=== PATIENT | female | born 1990 | race Caucasian/White ===

== ENCOUNTER 2016-05-02 14:33 | Emergency (ER) | payer OTHER ==
[~2016-05-02 14:33] MED LIST: PREN27TA3 PO
[2016-05-02 15:52] LABS: BASO % 0.2 % (0.0-1.0); EOS # 0.1 K/mm3 (0.0-0.50); EOS % 1.1 % (0.0-3.0); LARGE UNSTAINED CELL # 0.3 K/mm3 (0.0-0.4); LYMPH # 1.8 K/mm3 (1.5-6.5); LYMPH % 14.6 % (24.0-44.0); MEAN CORPUSCULAR HEMOGLOBIN 29.8 pg (27.0-33.0); MEAN CORPUSCULAR HGB CONC 33.7 g/dl (32.0-36.5); MEAN CORPUSCULAR VOLUME 88.6 fl (80.0-96.0); MONO # 0.8 K/mm3 (0.0-0.8); MONO % 6.1 % (0.0-5.0); NEUTROPHILS # 9.6 K/mm3 (1.8-7.7); PLATELET COUNT, AUTOMATED 304 k/mm3 (150-450); RED CELL DISTRIBUTION WIDTH 13.1 % (11.5-14.5); WHITE BLOOD COUNT 12.6 K/mm3 (4.0-10.0)
[2016-05-02 15:58] LABS: INR 0.95
[2016-05-02 16:21] LABS: ANION GAP 9 MEQ/L (8-16); BLOOD UREA NITROGEN 4 MG/DL (7-18); CALCIUM LEVEL 8.7 MG/DL (8.5-10.1); CARBON DIOXIDE LEVEL 24 MEQ/L (21-32); CHLORIDE LEVEL 108 MEQ/L (98-107); CREATININE FOR GFR 0.48 MG/DL (0.55-1.02); GLOMERULAR FILTRATION RATE > 60.0 (>60); GLUCOSE, FASTING 76 MG/DL (70-105); SODIUM LEVEL 141 MEQ/L (136-145)
--- NOTE | 2016-05-02 16:47 | REP ---
Bilateral lower extremity Duplex Doppler venous ultrasound: Real time compression and duplex Doppler interrogation of the bilateral lower extremity deep venous system is performed. Bilaterally, the common femoral, superficial femoral and popliteal veins are fully compressible with transducer pressure and demonstrate normal spontaneous and phasic flow, without evidence of deep venous thrombosis. Impression: No evidence of deep venous thrombosis of the bilateral lower extremity femoral popliteal venous system. Signed by Rudy Patel MD 05/02/2016 04:38 P
--- NOTE | 2016-05-02 17:24 | EDDOCDS ---
[facility] Name: Adamaris Gore Age: 25 yrs Sex: Female : 1990 Arrival Date: 05/02/2016 Time: 14:33 Bed I2 / M2 Private MD: Reena Hope C Diagnosis: Chest pain, unspecified Presentation: 05/02 14:41 Presenting complaint: Patient states: pain under left breast that radiates to back that dsf started this morning. pt states she did have calf pain 2 days ago but that has resolved this morning. pt states she is 35 weeks . Aspirin was not taken prior to arrival. Adult Sepsis Screening: The patient does not have new or worsening altered mentation. Patient's respiratory rate is less than 22. Systolic blood pressure is greater than 100. Patient has a qSOFA score of 0- Negative Sepsis Screen. Suicide/Homicide risk assessment- the patient denies having any suicidal and/or homicidal ideations and does not present with any other emotional, behavioral or mental health complaints. 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 Transition of care: patient was not received from another setting of care. 14:41 Acuity: PALOMA Level 3 dsf 14:41 Method Of Arrival: Walkin/Carried/Asstd dsf Triage Assessment: 14:43 General: Appears in no apparent distress, Behavior is appropriate for age, cooperative. dsf Pain: Location: under left breast Pain currently is 6 out of 10 on a pain scale. Pain radiates to back Quality of pain is described as sharp. HIV screening NA for this visit Offered previously. Cardiovascular: Chest pain is described as Pain is 6 out of 10 on a pain scale. quality is sharp is located in under left breast radiates back episodes are continuous began this morning. Respiratory: Reports pain with respiration. Derm: Skin is pink, warm & dry. 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 1 mg Oral tab daily (Last dose: 05/01/2016) 2. vitamin B12 IM injection monthly (Last dose: Unknown) - PMHx: Depression; GERD; Glaucoma; Vitamin D deficiency; - PSHx: ; - Social history: Smoking status: Patient uses tobacco products, current every day smoker. No barriers to communication noted, The patient speaks fluent Bangladeshi, Speaks appropriately for age. - Family history: Not pertinent. - : The pt / caregiver states he / she is not on anticoagulants. Home medication list is obtained from the patient. - Exposure Risk Screening:: None identified. Screenin:10 Screening information is obtained from the patient. Fall risk: No risks identified. kr3 Assistance ADL's: requires no assistance with activities of daily living. Abuse/DV Screen: The patient / caregiver reports he/she is: not in a situation that causes fear, pain or injury. Nutritional screening: No deficits noted. Advance Directives: Currently, there is no health care proxy. home support is adequate. Assessment: 15:42 General: Appears in no apparent distress, comfortable, well developed, well nourished, ka4 well groomed, Behavior is appropriate for age, cooperative, pleasant. Pain: Location: epigastric area, right upper quadrant and left upper quadrant Pain currently is 4 out of 10 on a pain scale. Neurological: Level of Consciousness is awake, alert, obeys commands, Oriented to person, place, time, Gait is steady, Speech is normal, Facial symmetry appears normal, Facial symmetry: tongue is midline. Respiratory: Airway is patent Respiratory effort is even, unlabored, Respiratory pattern is regular, symmetrical. Derm: Skin is intact, is healthy with good turgor, Skin is pink, warm & dry. 16:15 General: Appears in no apparent distress. Cardiovascular: Rhythm is not applicable rs3 Chest pain is denied. Respiratory: Reports pain with respiration Left flank pain. Musculoskeletal: Circulation, motion, and sensation intact Capillary refill < 3 seconds. 17:23 Reassessment: Patient appears in no apparent distress at this time. Patient states rs3 feeling better. Patient states symptoms have improved. Vital Signs: 14:35 BP 116 / 81; Pulse 124; Resp 18 S; Temp 97.5(O); Pulse Ox 98% on R/A; Weight 82.55 kg gr2 (R); Height 5 ft. 8 in. (172.72 cm) (R); Pain 6/10; 16:52 BP 123 / 68; Pulse 89; Resp 18; Temp 98(O); Pulse Ox 100% on R/A; Pain 6/10; rs3 14:35 Body Mass Index 27.67 (82.55 kg, 172.72 cm) gr2 Vitals: 14:35 Log In Time: May 02, 2016 at 14:35. gr2 15:10 Heart Tones 158BPM. kr3 ED Course: 14:34 Patient visited by Kendra Patel. gr2 14:34 Patient moved to Waiting gr2 14:35 Reena Hope is Private Physician. gr2 14:37 Patient visited by Kendra Patel. gr2 14:37 Patient moved to Pre RCE gr2 14:42 Triage Initiated dsf 14:47 Patient moved to Triage 1 dsf 15:08 Luis Hicks PA-C is PHCP. cc10 15:09 Jennifer Gaytan MD is Attending Physician. cc10 15:09 Patient visited by Luis Hicks PA-C. cc10 15:09 Patient visited by Luis Hicks PA-C. cc10 15:10 EKG done. (by ED staff). Reviewed by Cornelius DEL RIO. kr3 15:18 Patient moved to I2 / M2 kr3 15:41 Basic Metabolic Profile Sent. ka4 15:41 CBC with Diff Sent. ka4 15:41 Cardiac Injury Profile Sent. ka4 15:41 Partial Thromboplastin Time Sent. ka4 15:41 Prothrombin Time Profile\E\INR Sent. ka4 15:41 Troponin Sent. ka4 15:42 Inserted saline lock: 20 gauge in right antecubital area and blood collected. The ka4 patient tolerated the procedure well. No procedures done that require assistance. Labs drawn. (by ED staff). Sent per order to lab. 15:44 Patient visited by Tonya Roper LPN. ka4 16:15 Patient moved to Ultrasound am17 16:31 Patient moved to I2 / M2 am17 16:52 Patient visited by Mayda Perez RN. rs3 17:10 Anaid Velasco MD is Referral Physician. cc10 17:18 Lower Extremities Bilateral R/O DVT Returned. EDMS 17:20 [facility] Payment Agreement was scanned into [email or web address] and attached to record. zo 17:24 The patient / caregiver is instructed regarding the plan of care and ED course. Cardiac rs3 monitoring not applicable on this patient. Administered Medications: 15:49 Drug: NS 0.9% 500 ml [sodium chloride 0.9 % intravenous solution] Route: IV; Rate: rs3 bolus; Site: right antecubital; Order Results: Lab Order: Basic Metabolic Profile; SPEC'M 05/02/16 15:39 Test: GLUCOSE, FASTING; Value: 76; Range: 70-105; Units: MG/DL; Status: F Test: BLOOD UREA NITROGEN; Value: 4; Range: 7-18; Abnormal: Below low normal; Units: MG/DL; Status: F Test: CREATININE FOR GFR; Value: 0.48; Range: 0.55-1.02; Abnormal: Below low normal; Units: MG/DL; Status: F Test: GLOMERULAR FILTRATION RATE; Value: > 60.0; Range: >60; Status: F Test: SODIUM LEVEL; Value: 141; Range: 136-145; Units: MEQ/L; Status: F Test: POTASSIUM SERUM; Value: 4.0; Range: 3.5-5.1; Units: MEQ/L; Status: F Test: CHLORIDE LEVEL; Value: 108; Range: 98-107; Abnormal: Above high normal; Units: MEQ/L; Status: F Test: CARBON DIOXIDE LEVEL; Value: 24; Range: 21-32; Units: MEQ/L; Status: F Test: ANION GAP; Value: 9; Range: 8-16; Units: MEQ/L; Status: F Test: CALCIUM LEVEL; Value: 8.7; Range: 8.5-10.1; Units: MG/DL; Status: F Test Note: ; Units are mL/min/1.73 m2 Chronic Kidney Disease Staging per NKF: Stage I & II GFR >=60 Normal to Mildly Decreased Stage III GFR 30-59 Moderately Decreased Stage IV GFR 15-29 Severely Decreased Stage V GFR <15 Very Little GFR Left ESRD GFR <15 on DIRECTOR ELECTRICAL ENGINEERING Lab Order: CBC with Diff; SPEC'M 05/02/16 15:39 Test: WHITE BLOOD COUNT; Value: 12.6; Range: 4.0-10.0; Abnormal: Above high normal; Units: K/mm3; Status: F Test: RED BLOOD COUNT; Value: 3.69; Range: 4.00-5.40; Abnormal: Below low normal; Units: M/mm3; Status: F Test: HEMOGLOBIN; Value: 11.0; Range: 12.0-16.0; Abnormal: Below low normal; Units: g/dl; Status: F Test: HEMATOCRIT; Value: 32.7; Range: 36.0-47.0; Abnormal: Below low normal; Units: %; Status: F Test: MEAN CORPUSCULAR VOLUME; Value: 88.6; Range: 80.0-96.0; Units: fl; Status: F Test: MEAN CORPUSCULAR HEMOGLOBIN; Value: 29.8; Range: 27.0-33.0; Units: pg; Status: F Test: MEAN CORPUSCULAR HGB CONC; Value: 33.7; Range: 32.0-36.5; Units: g/dl; Status: F Test: RED CELL DISTRIBUTION WIDTH; Value: 13.1; Range: 11.5-14.5; Units: %; Status: F Test: PLATELET COUNT, AUTOMATED; Value: 304; Range: 150-450; Units: k/mm3; Status: F Test: NEUTROPHILS %; Value: 76.0; Range: 36.0-66.0; Abnormal: Above high normal; Units: %; Status: F Test: LYMPH %; Value: 14.6; Range: 24.0-44.0; Abnormal: Below low normal; Units: %; Status: F Test: MONO %; Value: 6.1; Range: 0.0-5.0; Abnormal: Above high normal; Units: %; Status: F Test: EOS %; Value: 1.1; Range: 0.0-3.0; Units: %; Status: F Test: BASO %; Value: 0.2; Range: 0.0-1.0; Units: %; Status: F Test: LARGE UNSTAINED CELL %; Value: 2.0; Range: 0.0-4.0; Units: %; Status: F Test: NEUTROPHILS #; Value: 9.6; Range: 1.8-7.7; Abnormal: Above high normal; Units: K/mm3; Status: F Test: LYMPH #; Value: 1.8; Range: 1.5-6.5; Units: K/mm3; Status: F Test: MONO #; Value: 0.8; Range: 0.0-0.8; Units: K/mm3; Status: F Test: EOS #; Value: 0.1; Range: 0.0-0.50; Units: K/mm3; Status: F Test: BASO #; Value: 0.0; Range: 0.0-0.2; Units: K/mm3; Status: F Test: LARGE UNSTAINED CELL #; Value: 0.3; Range: 0.0-0.4; Units: K/mm3; Status: F Lab Order: Cardiac Injury Profile; [facility] 05/02/16 15:39 Test: CPK CREATINE PHOSPHOKINASE; Value: 26; Range: 26-192; Units: U/L; Status: F Test: CK-MB VALUE MASS; Value: 1.0; Range: 0.0-3.6; Units: NG/ML; Status: F Test: MB/CK RELATIVE INDEX; Value: 3.84; Range: < OR =4; Status: F Test Note: ; DIAGNOSIS CRITERIA MMB ng/ml Relative Index (RI) NON-AMI < or = 5 N/A PATEL ZONE > 5 < or = 4 AMI > 5 > 4 Lab Order: Partial Thromboplastin Time; [facility] 05/02/16 15:38 Test: PARTIAL THROMBOPLASTIN TIME; Value: 24.3; Range: 26.6-37.1; Abnormal: Below low normal; Units: SECONDS; Status: F Lab Order: Prothrombin Time Profile\E\INR; [facility] 05/02/16 15:38 Test: PROTHROMBIN TIME; Value: 12.8; Range: 12.3-14.5; Units: SECONDS; Status: F Test: INR; Value: 0.95; Status: F Test Note: ; THERAPUTIC HUMAN INR VALUES INDICATIONS NORMAL RANGES PROPHYLAXIS/TREATMENT OF: VENOUS THROMBOSIS 2.0-3.0 PULMONARY EMBOLISM 2.0-3.0 PREVENTION OF SYSTEMIC EMBOLISM FROM: TISSUE HEART VALVES 2.0-3.0 ACUTE MYOCARDIAL INFARCTION 2.0-3.0 VALVULAR HEART DISEASE 2.0-3.0 ATRIAL FIBRILLATION 2.0-3.0 MECHANICAL VALVES(HIGH RISK) 2.5-3.5 RECURRENT MYOCARDIAL INFARCTION 2.5-3.5 Lab Order: Troponin; [facility] 05/02/16 15:39 Test: TROPONIN I; Value: < 0.02; Range: < 0.10; Units: NG/ML; Status: F Test Note: ; Troponin I Reference Interval for [employer] [place] LOCI: 99th Percentile= 0.00-0.045 ng/ml Risk Stratification: <= 0.10 ng/ml Decreased Risk for Adverse Clinical Events. 0.10-1.50 ng/ml Increased Risk for Adverse Clinical Events. Evaluation of additional criterion and/or repeat testing in 2-6 hours is suggested to rule out myocardial damage. >= 1.50 ng/ml Indicative of Myocardial Injury. Radiology Order: US Lower Extremities Bilateral R/O DVT Test: US Lower Extremities Bilateral R/O DVT REASON FOR EXAMINATION: Deformity/Swelling; Bilateral lower extremity Duplex Doppler venous ultrasound:; ; Real time compression and duplex Doppler interrogation of the bilateral lower; extremity deep venous system is performed. Bilaterally, the common femoral,; superficial femoral and popliteal veins are fully compressible with transducer; pressure and demonstrate normal spontaneous and phasic flow, without evidence of; deep venous thrombosis.; ; Impression:; ; No evidence of deep venous thrombosis of the bilateral lower extremity femoral; popliteal venous system.; ; ; Signed by; Rudy Patel MD 05/02/2016 04:38 P; Outcome: 17:10 Discharge ordered by Provider. cc10 17:23 Discharge Assessment: patient administered narcotics - no. The following High Risk rs3 Discharge criteria are identified: None. Discharged to home with family. Condition: stable. Discharge instructions given to patient, Instructed on discharge instructions, follow up and referral plans. medication usage, Demonstrated understanding of instructions, medications, Pt was receptive of discharge instructions/ teaching. No special radiology studies were completed. Property :Personal belongings accompany Pt. 17:24 Patient left the ED. rs3 Signatures: Dispatcher [employer] EDMS Nara Galeana RN RN kr3 Renay Velásquez Rosemary, RN RN rs3 Dawna Myers RN RN javierf Kendra Patel2 Ekta Landis am17 Luis Hicks, PA-C PA-C cc10 Tonya Roper LPN [employer]PER[employer] ka4 Corrections: (The following items were deleted from the chart) 14:45 14:41 Presenting complaint: Patient states: pain under left breast that radiates to dsf back that started this morning. pt states she did have calf pain 2 days ago but that has resolved this morning dsf MTDD
--- NOTE | 2016-05-02 17:24 | EDDOCDS ---
Physician Documentation [facility] Name: Adamaris Gore Age: 25 yrs Sex: Female : 1990 Arrival Date: 05/02/2016 Time: 14:33 Bed I2 / M2 Private MD: Reena Hope C Disposition: 05/02/16 17:10 Discharged to Home/Self Care. Impression: Chest pain, unspecified. - Condition is Stable. - Discharge Instructions: Chest Wall Pain. - Medication Reconciliation form. - Follow up: Emergency Department; When: As needed; Reason: Worsening of conditions. Follow up: Anaid Velasco MD; When: Call to arrange an appointment; Reason: Wound/Symptom Recheck, Recheck today's complaints, Worsening of conditions, Continuance of care. - Problem is new. - Symptoms are unchanged. Historical: - Allergies: no known allergies; - Home Meds: 1. 1 mg Oral tab daily (Last dose: 05/01/2016) 2. vitamin B12 IM injection monthly (Last dose: Unknown) - PMHx: Depression; GERD; Glaucoma; Vitamin D deficiency; - PSHx: ; - Social history: Smoking status: Patient uses tobacco products, current every day smoker. No barriers to communication noted, The patient speaks fluent Bhutanese, Speaks appropriately for age. - Family history: Not pertinent. - : The pt / caregiver states he / she is not on anticoagulants. Home medication list is obtained from the patient. - Exposure Risk Screening:: None identified. FIELD HAND: 05/02 14:45 LMP 08/27/2015, Verified, EDC 06/02/2016, Gestational age from LMP: 35 weeks 4 dsf days Vital Signs: 14:35 BP 116 / 81; Pulse 124; Resp 18 S; Temp 97.5(O); Pulse Ox 98% on R/A; Weight 82.55 kg / gr2 181.99 lbs (R); Height 5 ft. 8 in. (172.72 cm) (R); Pain 6/10; 16:52 BP 123 / 68; Pulse 89; Resp 18; Temp 98(O); Pulse Ox 100% on R/A; Pain 6/10; rs3 14:35 Body Mass Index 27.67 (82.55 kg, 172.72 cm) gr2 MDM: 14:52 ECG WITH READING ER PHYS+CARDIAG ordered. EDMS 15:17 NS 0.9% 500 ml IV at bolus once ordered. cc10 15:17 IV Saline Lock ordered. cc10 15:17 Undress patient appropriately for examination ordered. cc10 15:17 Heart Tones ordered. cc10 15:19 US Lower Extremities Bilateral R/O DVT Ordered. EDMS 15:19 Basic Metabolic Profile Ordered. EDMS 15:19 CBC with Diff Ordered. EDMS 15:19 Cardiac Injury Profile Ordered. EDMS 15:19 Partial Thromboplastin Time Ordered. EDMS 15:19 Prothrombin Time Profile\E\INR Ordered. EDMS 15:19 Troponin Ordered. EDMS 16:26 Basic Metabolic Profile Reviewed. cc10 16:26 CBC with Diff Reviewed. cc10 16:26 Partial Thromboplastin Time Reviewed. cc10 16:26 Cardiac Injury Profile Reviewed. cc10 16:26 Prothrombin Time Profile\E\INR Reviewed. cc10 16:26 Troponin Reviewed. cc10 16:45 Vital Signs ordered. cc10 17:02 Financial registration complete. zo 17:20 [facility] Payment Agreement was scanned into [employer] and attached to record. zo Administered Medications: 15:49 Drug: NS 0.9% 500 ml [sodium chloride 0.9 % intravenous solution] Route: IV; Rate: rs3 bolus; Site: right antecubital; Signatures: Dispatcher [employer] Renay Kemp Rosemary, RN RN rs3 Dawna Myers RN RN dsf Luis Hicks PA-C PAToni cc10 The chart was reviewed and I authenticate all verbal orders and agree with the evaluation and treatment provided.Attachments: 17:20 [facility] Payment Agreement zo MTDD
--- NOTE | 2016-05-04 08:14 | ECGEPIP ---
Stationary ECG Study 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
--- NOTE | 2016-05-04 18:25 | EDDOCDS ---
Physician Documentation [facility] Name: Adamaris Gore Age: 25 yrs Sex: Female : 1990 Arrival Date: 05/02/2016 Time: 14:33 Bed I2 / M2 Private MD: Reena Hope C Disposition: 05/02/16 17:10 Discharged to Home/Self Care. Impression: Chest pain, unspecified. - Condition is Stable. - Discharge Instructions: Chest Wall Pain. - Medication Reconciliation form. - Follow up: Emergency Department; When: As needed; Reason: Worsening of conditions. Follow up: Anaid Velasco MD; When: Call to arrange an appointment; Reason: Wound/Symptom Recheck, Recheck today's complaints, Worsening of conditions, Continuance of care. - Problem is new. - Symptoms are unchanged. Historical: - Allergies: no known allergies; - Home Meds: 1. 1 mg Oral tab daily (Last dose: 05/01/2016) 2. vitamin B12 IM injection monthly (Last dose: Unknown) - PMHx: Depression; GERD; Glaucoma; Vitamin D deficiency; - PSHx: ; - Social history: Smoking status: Patient uses tobacco products, current every day smoker. No barriers to communication noted, The patient speaks fluent Guamanian, Speaks appropriately for age. - Family history: Not pertinent. - : The pt / caregiver states he / she is not on anticoagulants. Home medication list is obtained from the patient. - Exposure Risk Screening:: None identified. 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 8 in. (172.72 cm) (R); Pain 6/10; 16:52 BP 123 / 68; Pulse 89; Resp 18; Temp 98(O); Pulse Ox 100% on R/A; Pain 6/10; rs3 14:35 Body Mass Index 27.67 (82.55 kg, 172.72 cm) gr2 MDM: 14:52 ECG WITH READING ER PHYS+CARDIAG ordered. EDMS 15:17 NS 0.9% 500 ml IV at bolus once ordered. cc10 15:17 IV Saline Lock ordered. cc10 15:17 Undress patient appropriately for examination ordered. cc10 15:17 Heart Tones ordered. cc10 15:19 US Lower Extremities Bilateral R/O DVT Ordered. EDMS 15:19 Basic Metabolic Profile Ordered. EDMS 15:19 CBC with Diff Ordered. EDMS 15:19 Cardiac Injury Profile Ordered. EDMS 15:19 Partial Thromboplastin Time Ordered. EDMS 15:19 Prothrombin Time Profile\E\INR Ordered. EDMS 15:19 Troponin Ordered. EDMS 16:26 Basic Metabolic Profile Reviewed. cc10 16:26 CBC with Diff Reviewed. cc10 16:26 Partial Thromboplastin Time Reviewed. cc10 16:26 Cardiac Injury Profile Reviewed. cc10 16:26 Prothrombin Time Profile\E\INR Reviewed. cc10 16:26 Troponin Reviewed. cc10 16:45 Vital Signs ordered. cc10 17:02 Financial registration complete. zo 17:20 [facility] Payment Agreement was scanned into [employer] and attached to record. zo 05/03 07:12 T-Sheet-- Draft Copy was scanned into [employer] and attached to record. gb 11:49 ECG/EKG was scanned into [employer] and attached to record. gb Administered Medications: 05/02 15:49 Drug: NS 0.9% 500 ml [sodium chloride 0.9 % intravenous solution] Route: IV; Rate: rs3 bolus; Site: right antecubital; Signatures: Dispatcher [employer] EDMS Shi Casper, Reg Reg Renay Kruse RosemaryRN RN rs3 Dawna Myers RN RN javierf Luis Hicks, MICHAEL PAToni cc10 The chart was reviewed and I authenticate all verbal orders and agree with the evaluation and treatment provided.Attachments: 17:20 [facility] Payment Agreement zo 05/03 07:12 T-Sheet-- Draft Copy gb 11:49 ECG/EKG gb Chart Complete MTDD
--- NOTE | 2016-05-04 18:25 | EDDOCDS ---
Nurse's Notes [facility] Name: Terrie Aburto Age: 25 yrs Sex: Female : 1990 Arrival Date: 05/02/2016 Time: 14:33 Bed I2 / M2 Private MD: Reena Hope C Diagnosis: Chest pain, unspecified Presentation: 05/02 14:41 Presenting complaint: Patient states: pain under left breast that radiates to back that dsf started this morning. pt states she did have calf pain 2 days ago but that has resolved this morning. pt states she is 35 weeks . Aspirin was not taken prior to arrival. Adult Sepsis Screening: The patient does not have new or worsening altered mentation. Patient's respiratory rate is less than 22. Systolic blood pressure is greater than 100. Patient has a qSOFA score of 0- Negative Sepsis Screen. Suicide/Homicide risk assessment- the patient denies having any suicidal and/or homicidal ideations and does not present with any other emotional, behavioral or mental health complaints. Status: Patient is not a hr shared services consultant or dependent. Transition of care: patient was not received from another setting of care. 14:41 Acuity: PALOMA Level 3 dsf 14:41 Method Of Arrival: Walkin/Carried/Asstd dsf Triage Assessment: 14:43 General: Appears in no apparent distress, Behavior is appropriate for age, cooperative. dsf Pain: Location: under left breast Pain currently is 6 out of 10 on a pain scale. Pain radiates to back Quality of pain is described as sharp. HIV screening NA for this visit Offered previously. Cardiovascular: Chest pain is described as Pain is 6 out of 10 on a pain scale. quality is sharp is located in under left breast radiates back episodes are continuous began this morning. Respiratory: Reports pain with respiration. Derm: Skin is pink, warm & dry. 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 1 mg Oral tab daily (Last dose: 05/01/2016) 2. vitamin B12 IM injection monthly (Last dose: Unknown) - PMHx: Depression; GERD; Glaucoma; Vitamin D deficiency; - PSHx: ; - Social history: Smoking status: Patient uses tobacco products, current every day smoker. No barriers to communication noted, The patient speaks fluent Chilean, Speaks appropriately for age. - Family history: Not pertinent. - : The pt / caregiver states he / she is not on anticoagulants. Home medication list is obtained from the patient. - Exposure Risk Screening:: None identified. Screenin:10 Screening information is obtained from the patient. Fall risk: No risks identified. kr3 Assistance ADL's: requires no assistance with activities of daily living. Abuse/DV Screen: The patient / caregiver reports he/she is: not in a situation that causes fear, pain or injury. Nutritional screening: No deficits noted. Advance Directives: Currently, there is no health care proxy. home support is adequate. Assessment: 15:42 General: Appears in no apparent distress, comfortable, well developed, well nourished, ka4 well groomed, Behavior is appropriate for age, cooperative, pleasant. Pain: Location: epigastric area, right upper quadrant and left upper quadrant Pain currently is 4 out of 10 on a pain scale. Neurological: Level of Consciousness is awake, alert, obeys commands, Oriented to person, place, time, Gait is steady, Speech is normal, Facial symmetry appears normal, Facial symmetry: tongue is midline. Respiratory: Airway is patent Respiratory effort is even, unlabored, Respiratory pattern is regular, symmetrical. Derm: Skin is intact, is healthy with good turgor, Skin is pink, warm & dry. 16:15 General: Appears in no apparent distress. Cardiovascular: Rhythm is not applicable rs3 Chest pain is denied. Respiratory: Reports pain with respiration Left flank pain. Musculoskeletal: Circulation, motion, and sensation intact Capillary refill < 3 seconds. 17:23 Reassessment: Patient appears in no apparent distress at this time. Patient states rs3 feeling better. Patient states symptoms have improved. Vital Signs: 14:35 BP 116 / 81; Pulse 124; Resp 18 S; Temp 97.5(O); Pulse Ox 98% on R/A; Weight 82.55 kg gr2 (R); Height 5 ft. 8 in. (172.72 cm) (R); Pain 6/10; 16:52 BP 123 / 68; Pulse 89; Resp 18; Temp 98(O); Pulse Ox 100% on R/A; Pain 6/10; rs3 14:35 Body Mass Index 27.67 (82.55 kg, 172.72 cm) gr2 Vitals: 14:35 Log In Time: May 02, 2016 at 14:35. gr2 15:10 Heart Tones 158BPM. kr3 ED Course: 14:34 Patient visited by Kendra Patel. gr2 14:34 Patient moved to Waiting gr2 14:35 Reena Hope is Private Physician. gr2 14:37 Patient visited by Kendra Patel. gr2 14:37 Patient moved to Pre RCE gr2 14:42 Triage Initiated dsf 14:47 Patient moved to Triage 1 dsf 15:08 Luis Hicks PA-C is PHCP. cc10 15:09 Jennifer Gaytan MD is Attending Physician. cc10 15:09 Patient visited by Luis Hicks PA-C. cc10 15:09 Patient visited by Luis Hicks PA-C. cc10 15:10 EKG done. (by ED staff). Reviewed by Ezequiel DEL RIO. kr3 15:18 Patient moved to I2 / M2 kr3 15:41 Basic Metabolic Profile Sent. ka4 15:41 CBC with Diff Sent. ka4 15:41 Cardiac Injury Profile Sent. ka4 15:41 Partial Thromboplastin Time Sent. ka4 15:41 Prothrombin Time Profile\E\INR Sent. ka4 15:41 Troponin Sent. ka4 15:42 Inserted saline lock: 20 gauge in right antecubital area and blood collected. The ka4 patient tolerated the procedure well. No procedures done that require assistance. Labs drawn. (by ED staff). Sent per order to lab. 15:44 Patient visited by Tonya Roper LPN. ka4 16:15 Patient moved to Ultrasound am17 16:31 Patient moved to I2 / M2 am17 16:52 Patient visited by Mayda Perez RN. rs3 17:10 Anaid Velasco MD is Referral Physician. cc10 17:18 Lower Extremities Bilateral R/O DVT Returned. EDMS 17:20 [facility] Payment Agreement was scanned into Inaura and attached to record. zo 17:24 The patient / caregiver is instructed regarding the plan of care and ED course. Cardiac rs3 monitoring not applicable on this patient. 05/03 07:12 T-Sheet-- Draft Copy was scanned into Inaura and attached to record. gb 11:49 ECG/EKG was scanned into Inaura and attached to record. gb 05/04 08:38 EKG-ADULT Returned. EDMS Administered Medications: 05/02 15:49 Drug: NS 0.9% 500 ml [sodium chloride 0.9 % intravenous solution] Route: IV; Rate: rs3 bolus; Site: right antecubital; Order Results: Lab Order: Basic Metabolic Profile; SPEC'M 05/02/16 15:39 Test: GLUCOSE, FASTING; Value: 76; Range: 70-105; Units: MG/DL; Status: F Test: BLOOD UREA NITROGEN; Value: 4; Range: 7-18; Abnormal: Below low normal; Units: MG/DL; Status: F Test: CREATININE FOR GFR; Value: 0.48; Range: 0.55-1.02; Abnormal: Below low normal; Units: MG/DL; Status: F Test: GLOMERULAR FILTRATION RATE; Value: > 60.0; Range: >60; Status: F Test: SODIUM LEVEL; Value: 141; Range: 136-145; Units: MEQ/L; Status: F Test: POTASSIUM SERUM; Value: 4.0; Range: 3.5-5.1; Units: MEQ/L; Status: F Test: CHLORIDE LEVEL; Value: 108; Range: 98-107; Abnormal: Above high normal; Units: MEQ/L; Status: F Test: CARBON DIOXIDE LEVEL; Value: 24; Range: 21-32; Units: MEQ/L; Status: F Test: ANION GAP; Value: 9; Range: 8-16; Units: MEQ/L; Status: F Test: CALCIUM LEVEL; Value: 8.7; Range: 8.5-10.1; Units: MG/DL; Status: F Test Note: ; Units are mL/min/1.73 m2 Chronic Kidney Disease Staging per NKF: Stage I & II GFR >=60 Normal to Mildly Decreased Stage III GFR 30-59 Moderately Decreased Stage IV GFR 15-29 Severely Decreased Stage V GFR <15 Very Little GFR Left ESRD GFR <15 on INFORMATION SECURITY ASSOCIATE Lab Order: CBC with Diff; SPEC'M 05/02/16 15:39 Test: WHITE BLOOD COUNT; Value: 12.6; Range: 4.0-10.0; Abnormal: Above high normal; Units: K/mm3; Status: F Test: RED BLOOD COUNT; Value: 3.69; Range: 4.00-5.40; Abnormal: Below low normal; Units: M/mm3; Status: F Test: HEMOGLOBIN; Value: 11.0; Range: 12.0-16.0; Abnormal: Below low normal; Units: g/dl; Status: F Test: HEMATOCRIT; Value: 32.7; Range: 36.0-47.0; Abnormal: Below low normal; Units: %; Status: F Test: MEAN CORPUSCULAR VOLUME; Value: 88.6; Range: 80.0-96.0; Units: fl; Status: F Test: MEAN CORPUSCULAR HEMOGLOBIN; Value: 29.8; Range: 27.0-33.0; Units: pg; Status: F Test: MEAN CORPUSCULAR HGB CONC; Value: 33.7; Range: 32.0-36.5; Units: g/dl; Status: F Test: RED CELL DISTRIBUTION WIDTH; Value: 13.1; Range: 11.5-14.5; Units: %; Status: F Test: PLATELET COUNT, AUTOMATED; Value: 304; Range: 150-450; Units: k/mm3; Status: F Test: NEUTROPHILS %; Value: 76.0; Range: 36.0-66.0; Abnormal: Above high normal; Units: %; Status: F Test: LYMPH %; Value: 14.6; Range: 24.0-44.0; Abnormal: Below low normal; Units: %; Status: F Test: MONO %; Value: 6.1; Range: 0.0-5.0; Abnormal: Above high normal; Units: %; Status: F Test: EOS %; Value: 1.1; Range: 0.0-3.0; Units: %; Status: F Test: BASO %; Value: 0.2; Range: 0.0-1.0; Units: %; Status: F Test: LARGE UNSTAINED CELL %; Value: 2.0; Range: 0.0-4.0; Units: %; Status: F Test: NEUTROPHILS #; Value: 9.6; Range: 1.8-7.7; Abnormal: Above high normal; Units: K/mm3; Status: F Test: LYMPH #; Value: 1.8; Range: 1.5-6.5; Units: K/mm3; Status: F Test: MONO #; Value: 0.8; Range: 0.0-0.8; Units: K/mm3; Status: F Test: EOS #; Value: 0.1; Range: 0.0-0.50; Units: K/mm3; Status: F Test: BASO #; Value: 0.0; Range: 0.0-0.2; Units: K/mm3; Status: F Test: LARGE UNSTAINED CELL #; Value: 0.3; Range: 0.0-0.4; Units: K/mm3; Status: F Lab Order: Cardiac Injury Profile; [facility]' 05/02/16 15:39 Test: CPK CREATINE PHOSPHOKINASE; Value: 26; Range: 26-192; Units: U/L; Status: F Test: CK-MB VALUE MASS; Value: 1.0; Range: 0.0-3.6; Units: NG/ML; Status: F Test: MB/CK RELATIVE INDEX; Value: 3.84; Range: < OR =4; Status: F Test Note: ; DIAGNOSIS CRITERIA MMB ng/ml Relative Index (RI) NON-AMI < or = 5 N/A PATEL ZONE > 5 < or = 4 AMI > 5 > 4 Lab Order: Partial Thromboplastin Time; [facility]' 05/02/16 15:38 Test: PARTIAL THROMBOPLASTIN TIME; Value: 24.3; Range: 26.6-37.1; Abnormal: Below low normal; Units: SECONDS; Status: F Lab Order: Prothrombin Time Profile\E\INR; [facility]' 05/02/16 15:38 Test: PROTHROMBIN TIME; Value: 12.8; Range: 12.3-14.5; Units: SECONDS; Status: F Test: INR; Value: 0.95; Status: F Test Note: ; THERAPUTIC HUMAN INR VALUES INDICATIONS NORMAL RANGES PROPHYLAXIS/TREATMENT OF: VENOUS THROMBOSIS 2.0-3.0 PULMONARY EMBOLISM 2.0-3.0 PREVENTION OF SYSTEMIC EMBOLISM FROM: TISSUE HEART VALVES 2.0-3.0 ACUTE MYOCARDIAL INFARCTION 2.0-3.0 VALVULAR HEART DISEASE 2.0-3.0 ATRIAL FIBRILLATION 2.0-3.0 MECHANICAL VALVES(HIGH RISK) 2.5-3.5 RECURRENT MYOCARDIAL INFARCTION 2.5-3.5 Lab Order: Troponin; SPEC'M 05/02/16 15:39 Test: TROPONIN I; Value: < 0.02; Range: < 0.10; Units: NG/ML; Status: F Test Note: ; Troponin I Reference Interval for Siemens [place] LOCI: 99th Percentile= 0.00-0.045 ng/ml Risk Stratification: <= 0.10 ng/ml Decreased Risk for Adverse Clinical Events. 0.10-1.50 ng/ml Increased Risk for Adverse Clinical Events. Evaluation of additional criterion and/or repeat testing in 2-6 hours is suggested to rule out myocardial damage. >= 1.50 ng/ml Indicative of Myocardial Injury. Radiology Order: EKG-ADULT Test: EKG-ADULT REASON FOR EXAMINATION: ;Chest Pain; Stationary ECG Study; [facility] - ED; ; Test Date: 2016-05-02; Pat Name: TERRIE ABURTO Department:; Room: -; Gender: F Care Technician: jaqueline; : 1990 Requested By: EZEQUIEL Mcclure PA-C; Order Number: [id number] Reading MD: Maria Guadalupe Newton; Measurements; Intervals [place]; Rate: 122 P: 43; ND: 123 QRS: 46; QRSD: 77 T: -7; QT: 328; QTc: 468; Interpretive Statements; SINUS TACHYCARDIA; NONSPECIFIC T-WAVE ABNORMALITY; ABNORMAL RHYTHM ECG; NO PRIOR FOR COMPARISON; Electronically Signed On 05-04-2016 8:14:11 EST by Maria Guadalupe Newton; Radiology Order: US Lower Extremities Bilateral R/O DVT Test: US Lower Extremities Bilateral R/O DVT REASON FOR EXAMINATION: Deformity/Swelling; Bilateral lower extremity Duplex Doppler venous ultrasound:; ; Real time compression and duplex Doppler interrogation of the bilateral lower; extremity deep venous system is performed. Bilaterally, the common femoral,; superficial femoral and popliteal veins are fully compressible with transducer; pressure and demonstrate normal spontaneous and phasic flow, without evidence of; deep venous thrombosis.; ; Impression:; ; No evidence of deep venous thrombosis of the bilateral lower extremity femoral; popliteal venous system.; ; ; Signed by; Rudy Patel MD 05/02/2016 04:38 P; Outcome: 17:10 Discharge ordered by Provider. cc10 17:23 Discharge Assessment: patient administered narcotics - no. The following High Risk rs3 Discharge criteria are identified: None. Discharged to home with family. Condition: stable. Discharge instructions given to patient, Instructed on discharge instructions, follow up and referral plans. medication usage, Demonstrated understanding of instructions, medications, Pt was receptive of discharge instructions/ teaching. No special radiology studies were completed. Property :Personal belongings accompany Pt. 17:24 Patient left the ED. rs3 Signatures: Dispatcher Med[employer] EDMS Shi Casper, Remington Reg gb Nara Galeana,RN RN kr3 Renay Velásquez RosemaryRN RN rs3 Dawna Myers RN RN dsf Kendra Patel gr2 Ekat Landis am17 Luis Hicks, PA-C PA-C cc10 Tonya Roper LPN LPN ka4 Corrections: (The following items were deleted from the chart) 14:45 14:41 Presenting complaint: Patient states: pain under left breast that radiates to dsf back that started this morning. pt states she did have calf pain 2 days ago but that has resolved this morning dsf Chart Complete MTDD
--- NOTE | 2016-05-04 18:25 | EDDOCDS ---
Physician Documentation [facility] Name: Adamaris Gore Age: 25 yrs Sex: Female : 1990 Arrival Date: 05/02/2016 Time: 14:33 Bed I2 / M2 Private MD: Reena Hope C Disposition: 05/02/16 17:10 Discharged to Home/Self Care. Impression: Chest pain, unspecified. - Condition is Stable. - Discharge Instructions: Chest Wall Pain. - Medication Reconciliation form. - Follow up: Emergency Department; When: As needed; Reason: Worsening of conditions. Follow up: Anaid Velasco MD; When: Call to arrange an appointment; Reason: Wound/Symptom Recheck, Recheck today's complaints, Worsening of conditions, Continuance of care. - Problem is new. - Symptoms are unchanged. Historical: - Allergies: no known allergies; - Home Meds: 1. 1 mg Oral tab daily (Last dose: 05/01/2016) 2. vitamin B12 IM injection monthly (Last dose: Unknown) - PMHx: Depression; GERD; Glaucoma; Vitamin D deficiency; - PSHx: ; - Social history: Smoking status: Patient uses tobacco products, current every day smoker. No barriers to communication noted, The patient speaks fluent Bulgarian, Speaks appropriately for age. - Family history: Not pertinent. - : The pt / caregiver states he / she is not on anticoagulants. Home medication list is obtained from the patient. - Exposure Risk Screening:: None identified. 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 8 in. (172.72 cm) (R); Pain 6/10; 16:52 BP 123 / 68; Pulse 89; Resp 18; Temp 98(O); Pulse Ox 100% on R/A; Pain 6/10; rs3 14:35 Body Mass Index 27.67 (82.55 kg, 172.72 cm) gr2 MDM: 14:52 ECG WITH READING ER PHYS+CARDIAG ordered. EDMS 15:17 NS 0.9% 500 ml IV at bolus once ordered. cc10 15:17 IV Saline Lock ordered. cc10 15:17 Undress patient appropriately for examination ordered. cc10 15:17 Heart Tones ordered. cc10 15:19 US Lower Extremities Bilateral R/O DVT Ordered. EDMS 15:19 Basic Metabolic Profile Ordered. EDMS 15:19 CBC with Diff Ordered. EDMS 15:19 Cardiac Injury Profile Ordered. EDMS 15:19 Partial Thromboplastin Time Ordered. EDMS 15:19 Prothrombin Time Profile\E\INR Ordered. EDMS 15:19 Troponin Ordered. EDMS 16:26 Basic Metabolic Profile Reviewed. cc10 16:26 CBC with Diff Reviewed. cc10 16:26 Partial Thromboplastin Time Reviewed. cc10 16:26 Cardiac Injury Profile Reviewed. cc10 16:26 Prothrombin Time Profile\E\INR Reviewed. cc10 16:26 Troponin Reviewed. cc10 16:45 Vital Signs ordered. cc10 17:02 Financial registration complete. zo 17:20 [facility] Payment Agreement was scanned into Codealike and attached to record. zo 05/03 07:12 T-Sheet-- Draft Copy was scanned into Codealike and attached to record. gb 11:49 ECG/EKG was scanned into Codealike and attached to record. gb Administered Medications: 05/02 15:49 Drug: NS 0.9% 500 ml [sodium chloride 0.9 % intravenous solution] Route: IV; Rate: rs3 bolus; Site: right antecubital; Signatures: Dispatcher MedHost EDMS Shi Casper, Reg Reg Renay Kruse RosemaryRN RN rs3 Dawna Myers RN RN javierf Luis Hicks, MICHAEL PAToni cc10 The chart was reviewed and I authenticate all verbal orders and agree with the evaluation and treatment provided.Attachments: 17:20 [facility] Payment Agreement zo 05/03 07:12 T-Sheet-- Draft Copy gb 11:49 ECG/EKG gb Chart Complete MTDD
== END 2016-05-02 17:24 | disposition home or self-care (01) ==
LOC: M ED 14:33
DX: R07.89 Other chest pain (principal); O99.343 Other mental disorders complicating pregnancy, third trimester; F32.9 Major depressive disorder, single episode, unspecified; O99.613 Diseases of the digestive system complicating pregnancy, third trimester; K21.9 Gastro-esophageal reflux disease without esophagitis; E55.9 Vitamin D deficiency, unspecified; L40.9 Psoriasis, unspecified; O99.333 Smoking (tobacco) complicating pregnancy, third trimester; Z79.899 Other long term (current) drug therapy; Z3A.36 36 weeks gestation of pregnancy

== ENCOUNTER → 2016-05-08 | Outpatient (REF) | payer OTHER | LOC: M LAB REF 13:23 | PROVIDERS: ATTEND Advanced Practice Midwife | DX: Z34.83 Encounter for supervision of other normal pregnancy, third trimester (principal) ==

== ENCOUNTER 2016-06-10 10:25 | Inpatient (IN) | payer OTHER ==
[2016-06-10] VITALS (12 sets, daily range): BP systolic 110–140; BP diastolic 60–85
[~2016-06-10] VITALS: Ht 172.7 cm; Wt 85.0 kg
[2016-06-10] MEDS ORDERED: LATA5OPD OD (11:17)
[2016-06-10 11:56] LABS: MEAN CORPUSCULAR HEMOGLOBIN 29.6 pg (27.0-33.0); MEAN CORPUSCULAR HGB CONC 33.8 g/dl (32.0-36.5); MEAN CORPUSCULAR VOLUME 87.5 fl (80.0-96.0); RED CELL DISTRIBUTION WIDTH 13.9 % (11.5-14.5); WHITE BLOOD COUNT 10.2 K/mm3 (4.0-10.0)
[2016-06-10 12:34] LABS: AMPHETAMINES LEVEL URINE NEGATIVE (NEGATIVE); BENZODIAZEPINES URINE NEGATIVE (NEGATIVE); COCAINE METABOLITE URINE NEGATIVE (NEGATIVE); CONTROL LINE INT CTR LINE PRESENT; METHADONE URINE NEGATIVE (NEGATIVE); OPIATES URINE NEGATIVE (NEGATIVE); TRICYCLIC ANTIDEPRESS URINE NEGATIVE (NEGATIVE)
[2016-06-10] MEDS: miSOPROStol 50 MCG 1/2 TAB (S0191) PO SCH ×2 (12:44→16:47)
--- NOTE | 2016-06-10 13:10 | HPE ---
DATE OF ADMISSION: 06/10/2016 HISTORY: 25-year-old, 4, para 1-0-2-1 female at 41 and 1/7 weeks gestational by last menstrual period and consistent with 10-week ultrasound. Estimated date of confinement (EDC) of 06/02/2016, presents for labor induction. She has a history of a prior section and desires an attempt at vaginal after section (). COURSE: The patient initiated care on 11/09/2015 at 10-weeks gestation. First trimester blood pressure was 110/60, weight was 150 pounds. Risk of and options were discussed during care. course was unremarkable. MEDICAL HISTORY: 1. Anxiety and depression. 2. History of drug addiction, including benzodiazepine and marijuana. 3. History of "huffing" of aerosol substances. SURGICAL HISTORY: section times one. OBSTETRICAL HISTORY: 1. In 2008, miscarriage. 2. In 2012, miscarriage. 3. In 2013, section for a 7 pound 15 ounce female . She had labor induction at 41 and 6/7 weeks gestation and diagnosed with arrest of dilation. SOCIAL HISTORY: She smokes occasional cigarettes. Drug use as described above, no current drug use. Father of the baby is supportive. FAMILY HISTORY: Noncontributory. PHYSICAL EXAMINATION: Blood pressure 120/74, weight 195. She is in no apparent distress. HEAD AND NECK EXAMINATION: Normal. LUNGS: Clear. HEART: Regular rate and rhythm. ABDOMEN: Nontender, gravid. heart tones category 1. Cervix is fingertip, 50%, posterior, firm, -3 station, vertex by ultrasound. EXTREMITIES: Nontender. LABORATORY DATA: Blood type O positive. Rubella immune. RPR nonreactive. Diabetes screening 126. Group B streptococcus (GBS) negative on 05/08/2016. ASSESSMENT AND PLAN: 25-year-old, 4, para 1 female at 41 and 1/7 weeks gestation, history of prior section, presents for labor induction. THe patient is admitted on 06/10/2016. consent was signed. Risks were discussed.
[2016-06-10] MEDS ORDERED: OXYTOCIN 30 UNITS IN 0.9% NaCl 500ML IV BAG (J2590) As Ordered ONE (21:06)
[2016-06-10] MEDS: LR 1,000 ML IV SCH (21:10)
[2016-06-10] MEDS ORDERED: OXYTOCIN DRIP 30 UNITS in APPROPRIATE DILUENT 1 EA IV SCH (21:15)
[2016-06-11] VITALS (47 sets, daily range): BP systolic 100–133; BP diastolic 55–86
[2016-06-11] MEDS: LR 1,000 ML IV SCH ×2 (03:28→21:52)
[2016-06-11] MEDS ORDERED: PROMETHAZINE INJ 25 MG/ML VIAL (J2550) IV ONE (08:15)
[2016-06-11] MEDS ORDERED: BUTORPHANOL 2 MG/ML INJ (J0595) IV ONE (08:15)
[2016-06-11] MEDS ORDERED: FENTANYL 2MCG/ML ROPIVACAINE 0.2% NACL 250 ML CADD As Ordered ONE (13:01)
[2016-06-11] MEDS ORDERED: NALOXONE INJ 0.4 MG/1 ML VIAL (J2310) IV PRN ×3 (14:15→21:05)
[2016-06-11] MEDS ORDERED: EPIDURAL COMMENT XX SCH (14:15)
[2016-06-11] MEDS ORDERED: diphenhydrAMINE INJ 50MG/ML VIAL (J1200) IV PRN (14:15)
[2016-06-11] MEDS ORDERED: ePHEDrine SULFATE 25 MG/5 ML(5MG/ML) SYRINGE IV PRN (14:15)
[2016-06-11] MEDS ORDERED: ONDANSETRON 4MG/2ML VIAL (J2405) IV PRN ×4 (14:15→22:45)
[2016-06-11] MEDS ORDERED: EPIDURAL/PCA KEYS XX PRN (14:15)
[2016-06-11] MEDS ORDERED: FENTANYL/ROPIVACAINE/NACL CADD 250 ML EPIDURAL SCH (14:15)
[2016-06-11] MEDS ORDERED: LACTATED RINGER'S 1000 ML IV PRN (14:15)
[2016-06-11] MEDS ORDERED: REFRIGERATOR IV KEYS XX PRN (14:15)
[2016-06-11] MEDS ORDERED: OXYTOCIN INJ 10 UNITS/ML VIAL (J2590) As Ordered ONE ×2 (19:46→21:15)
[2016-06-11] MEDS ORDERED: MORPHINE PRES-FREE INJ 10 MG/10 ML VIAL (J2274) As Ordered ONE (19:46)
[2016-06-11] MEDS ORDERED: LIDOCAINE 2% W/EPIN INJ 20ML **PRES FREE As Ordered ONE (19:52)
[2016-06-11] MEDS ORDERED: SODIUM BICARBONATE 8.4% INJ 50MEQ 50 ML VIAL As Ordered ONE (19:52)
[2016-06-11] MEDS ORDERED: LACTATED RINGER'S 1000 ML IV STA (20:21)
[2016-06-11] MEDS ORDERED: LR 1,000 ML IV SCH (20:21)
[2016-06-11] MEDS ORDERED: BICITRA 30ML SOLN UDC As Ordered ONE (20:24)
[2016-06-11] MEDS ORDERED: BICITRA 30ML SOLN UDC PO ONE (20:30)
[2016-06-11] MEDS ORDERED: ONDANSETRON 4MG/2ML VIAL (J2405) As Ordered ONE (20:56)
[2016-06-11] MEDS ORDERED: KETOROLAC 60 MG/2 ML VIAL (J1885) As Ordered ONE (20:56)
[2016-06-11] MEDS ORDERED: METOCLOPRAMIDE INJ 10MG/2ML VIAL (J2765) IV PRN (21:05)
[2016-06-11] MEDS ORDERED: NALBUPHINE HCL 10 MG/ML AMP (J2300) IV PRN ×2 (21:05→22:45)
[2016-06-11] MEDS ORDERED: PHENYLephrine HCL 500 MCG/5 ML (100MCG/ML) SYRINGE (J2370) As Ordered ONE (21:06)
[2016-06-11] MEDS ORDERED: MEPERIDINE 50 MG/ML 1ML VIAL (J2175) As Ordered ONE (21:12)
[2016-06-11 21:33] LABS: CORD GAS ABE V -6.9; CORD GAS O2 SAT V 55.4 %; CORD GAS PCO2 V 44.8 mmHg; CORD GAS PH V 7.268 UNITS; CORD GAS PO2 V 26.9 mmHg; CORD GAS SBC V 17.9 MEQ/L; CORD GAS TCO2 V 21.4 MEQ/L
[2016-06-11 21:35] LABS: CORD GAS ABE A -6.7; CORD GAS HCO3 A 23.5 MEQ/L; CORD GAS O2 SAT A 26.5 %; CORD GAS PCO2 A 65.8 mmHg; CORD GAS PH A 7.17 UNITS; CORD GAS SBC A 17.3 MEQ/L; CORD GAS TCO2 A 25.5 MEQ/L
[2016-06-11] MEDS ORDERED: PROMETHAZINE 25 MG TAB PO PRN (22:00)
[2016-06-11] MEDS ORDERED: RHOGAM 300 MCG (1500 IU) INJ (J2790) IM SCH (22:00)
[2016-06-11] MEDS ORDERED: MEASLES,MUMPS,RUBELLA VACCINE INJ (MMR-II) (90707) SC SCH (22:00)
[2016-06-11] MEDS ORDERED: fentaNYL 100 MCG/2 ML INJECTION (J3010) IV PRN (22:45)
[2016-06-11] MEDS: PERCOCET 5MG/325MG TAB PO PRN (23:24)
[2016-06-12] VITALS (7 sets, daily range): BP systolic 111–130; BP diastolic 67–80
[2016-06-12] MEDS: KETOROLAC 30 MG/ML VIAL (J1885) IV SCH ×4 (02:19→20:47)
[2016-06-12] MEDS: LR 1,000 ML IV SCH ×2 (05:52→13:52)
[2016-06-12 07:04] LABS: MEAN CORPUSCULAR VOLUME 87.9 fl (80.0-96.0); RED CELL DISTRIBUTION WIDTH 14.2 % (11.5-14.5); WHITE BLOOD COUNT 15.1 K/mm3 (4.0-10.0)
[2016-06-12] MEDS ORDERED: OXYC1TAB23 PO (08:06)
[2016-06-12] MEDS ORDERED: COLA100C PO (08:07)
[2016-06-12] MEDS ORDERED: IBUP600T26 PO (08:07)
[2016-06-12] MEDS: PRENATAL VITAMIN TAB PO SCH (08:19)
[2016-06-12] MEDS: PERCOCET 5MG/325MG TAB PO PRN ×3 (08:19→20:07)
[2016-06-12] MEDS: DOCUSATE SODIUM 100 MG CAP PO SCH ×2 (08:19→20:06)
[2016-06-13] MEDS: PERCOCET 5MG/325MG TAB PO PRN ×4 (00:50→23:36)
[2016-06-13] MEDS: IBUPROFEN 800 MG TAB PO SCH ×3 (04:33→20:38)
[2016-06-13 05:46] VITALS: BP 133/89
[2016-06-13] MEDS: DOCUSATE SODIUM 100 MG CAP PO SCH ×2 (08:37→20:38)
[2016-06-13] MEDS: PRENATAL VITAMIN TAB PO SCH (08:37)
[2016-06-13 18:04] VITALS: BP 135/80
[2016-06-14] MEDS: PERCOCET 5MG/325MG TAB PO PRN ×2 (04:17→08:36)
[2016-06-14] MEDS: IBUPROFEN 800 MG TAB PO SCH (05:20)
[2016-06-14 05:54] VITALS: BP 130/69
[2016-06-14] MEDS: PRENATAL VITAMIN TAB PO SCH (08:36)
[2016-06-14] MEDS: DOCUSATE SODIUM 100 MG CAP PO SCH (08:36)
--- NOTE | 2016-06-14 09:24 | DSES ---
DATE OF ADMISSION: 06/10/2016 DATE OF DISCHARGE: Adamaris Gore is a 25-year-old, 4, now para 2-0-0-2. DISCHARGE DIAGNOSIS: Repeat section post-term, failed induction of labor. Adamaris was admitted on 06/10/2016 and underwent induction of labor. She failed to progress and failed induction was diagnosed. She underwent repeat section and delivered a live male, 9 pounds 5 ounces, scores 8 and 8. Her postoperative course has been uncomplicated. She has been up for self care, beata care. Her is in the intensive care unit so she has also ambulated to the NICU without any difficulty. Her pain has been well controlled with oral Percocet. She is voiding without problems and admits to passing flatus. Her vital signs are stable this morning. Temperature is 97.0, pulse 109, respirations 18, blood pressure 130/69. She is alert and oriented times three. Breasts are soft, nontender. She has initiated with pumping. Her abdomen and fundus firm at one fingerbreadth below umbilicus. Perineum is intact. Scant lochia rubra. Her incision is well approximated. Steri-Strips are in place. There is no redness. No edema. No warmth and no unusual drainage. She does have bilateral lower extremity edema, +1 pitting. She does desire discharge today. DISCHARGE INSTRUCTIONS: Discharge instructions have been reviewed. Breast care, incision care, beata care, pelvic rest, activity and lifting restrictions, access to care and other danger signs in which to report to her provider. She has prescriptions written by the surgeon awaiting for her at her pharmacy for oral Percocet 5/325 one to two tablets by mouth every 6 hours as needed for pain. LABORATORY DATA: Preoperative CBC with hemoglobin 10.4, hematocrit 30.6, platelets 273. Postoperative CBC with hemoglobin 9, hematocrit 27.4, platelets 284. She does deny any complaints of dizziness or palpitations. She is to follow up at [facility] for 2-week incision check and a 6 weeks appointment.
== END 2016-06-14 10:10 | disposition home or self-care (01) | DRG 540 ==
LOC: M LDI 10:25 → M OBS 06-12 00:53
PROVIDERS: ADMIT Specialist; ATTEND Obstetrics & Gynecology
PROC: 10907ZC Drainage of Amniotic Fluid, Therapeutic from Products of Conception, Via Natural or Artificial Opening (ICD-10-PCS; 2016-06-10)
PROC: 3E0P7GC Introduction of Other Therapeutic Substance into Female Reproductive, Via Natural or Artificial Opening (ICD-10-PCS; 2016-06-10)
PROC: 10D00Z1 Extraction of Products of Conception, Low, Open Approach (ICD-10-PCS; principal; 2016-06-11 20:33)
DX: O48.0 Post-term pregnancy (principal); F17.210 Nicotine dependence, cigarettes, uncomplicated; O34.211 Maternal care for low transverse scar from previous cesarean delivery; Z3A.41 41 weeks gestation of pregnancy; O61.0 Failed medical induction of labor; O99.334 Smoking (tobacco) complicating childbirth; O66.41 Failed attempted vaginal birth after previous cesarean delivery; O62.0 Primary inadequate contractions; Z37.0 Single live birth

== ENCOUNTER 2016-08-12 21:08 | Emergency (ER) | payer OTHER ==
[~2016-08-12] VITALS: Ht 172.7 cm; Wt 76.7 kg
[~2016-08-12 21:08] MED LIST changes: +COLA100C3 PO; +IBUP600T26 PO; +LATA5OPD OD; +OXYC1TAB23 PO
[2016-08-12] MEDS ORDERED: birth control pill PO (21:22)
[2016-08-12] MEDS ORDERED: B-12100011 IM (21:22)
[2016-08-12] MEDS ORDERED: ACETAMINOPHEN 325 MG TAB PO ONE (22:45)
[2016-08-12 23:13] LABS: BASO % 0.5 % (0.0-1.0); EOS # 0.2 K/mm3 (0.0-0.50); LARGE UNSTAINED CELL # 0.1 K/mm3 (0.0-0.4); LARGE UNSTAINED CELL % 1.5 % (0.0-4.0); LYMPH # 3.1 K/mm3 (1.5-6.5); LYMPH % 31.2 % (24.0-44.0); MEAN CORPUSCULAR HEMOGLOBIN 26.9 pg (27.0-33.0); MEAN CORPUSCULAR HGB CONC 31.5 g/dl (32.0-36.5); MEAN CORPUSCULAR VOLUME 85.4 fl (80.0-96.0); MONO # 0.5 K/mm3 (0.0-0.8); MONO % 5.3 % (0.0-5.0); NEUTROPHILS # 5.6 K/mm3 (1.8-7.7); NEUTROPHILS % 59.5 % (36.0-66.0); PLATELET COUNT, AUTOMATED 393 k/mm3 (150-450); RED CELL DISTRIBUTION WIDTH 13.7 % (11.5-14.5); WHITE BLOOD COUNT 9.4 K/mm3 (4.0-10.0)
[2016-08-12 23:37] LABS: ANION GAP 3 MEQ/L (8-16); BLOOD UREA NITROGEN 9 MG/DL (7-18); CALCIUM LEVEL 9.1 MG/DL (8.5-10.1); CARBON DIOXIDE LEVEL 31 MEQ/L (21-32); CHLORIDE LEVEL 106 MEQ/L (98-107); CREATININE FOR GFR 0.84 MG/DL (0.55-1.02); GLOMERULAR FILTRATION RATE > 60.0 (>60); GLUCOSE, FASTING 94 MG/DL (70-105); POTASSIUM SERUM 4.7 MEQ/L (3.5-5.1); SODIUM LEVEL 140 MEQ/L (136-145)
--- NOTE | 2016-08-13 00:10 | REPUSA ---
Clinical history: Pain. Findings: Real-time transabdominal ultrasound images of the pelvis were obtained. An anteverted uteru s is noted, measuring 8.0 x 3.4 x 4.9 cm. The uterus demonstrates normal echotexture and echogenicity . The endometrial stripe measures 2 mm and is within normal limits. The right ovary measures 3.4 x 2 .9 x 2.7 cm. The left ovary measures 3.6 x 2.1 x 2.1 cm. No adnexal masses are seen. Color Doppler f low is seen within both ovaries. There is no evidence of free fluid. Impression: Unremarkable ultrasound examination of the pelvis.
[2016-08-13 00:30] VITALS: BP 132/88
[2016-08-13] MEDS ORDERED: NORCO 5/325MG TABLET (BULK FOR ED) PO ONE (00:30)
== END 2016-08-13 01:50 | disposition home or self-care (01) ==
LOC: M ED 22:29
DX: R10.2 Pelvic and perineal pain (principal); F41.9 Anxiety disorder, unspecified; M41.9 Scoliosis, unspecified; Z79.3 Long term (current) use of hormonal contraceptives; Z79.899 Other long term (current) drug therapy

== ENCOUNTER → 2016-08-14 | Outpatient (CLI) | payer OTHER ==
[~2016-08-14] MED LIST changes: +B-12100011 IM; +birth control pill PO
--- NOTE | 2016-08-14 15:08 | REP ---
AP/LATERAL THORACIC SPINE, THREE VIEWS: HISTORY: Scoliosis. There is no acute fracture or subluxation. The intervertebral discs are normal in height. There is no significant scoliosis. There are twelve rib-bearing vertebral bodies. IMPRESSION: There is no acute fracture or subluxation. Signed by Stepan Dick MD 08/14/2016 03:48 P
== END ==
LOC: M WUC 11:38
PROVIDERS: ATTEND Nurse Practitioner Family
DX: Q76.42 Congenital lordosis (principal)

== ENCOUNTER → 2016-11-25 | Outpatient (RCR) | payer OTHER ==
[~2016-11-25] MED LIST changes: -COLA100C3 PO; +COLA100C5 PO; +IBUP-1022 PO; -IBUP600T26 PO
== END | disposition home or self-care (01) ==
LOC: M PT 11-20 14:05
PROVIDERS: ATTEND Nurse Practitioner Family
DX: Z51.89 Encounter for other specified aftercare (principal); M54.5 Low back pain

== ENCOUNTER → 2016-12-10 | Outpatient (CLI) | payer OTHER ==
[2016-12-10 16:49] LABS: ALBUMIN 3.6 GM/DL (3.2-5.2); ALBUMIN/GLOBULIN RATIO 1.13 (1.00-1.93); ALKALINE PHOSPHATASE 130 U/L (45-117); ALT/SGPT 19 U/L (12-78); ANION GAP 9 MEQ/L (8-16); AST/SGOT 6 U/L (15-37); BILIRUBIN,TOTAL 0.3 MG/DL (0.2-1.0); BLOOD UREA NITROGEN 9 MG/DL (7-18); CARBON DIOXIDE LEVEL 27 MEQ/L (21-32); CHLORIDE LEVEL 105 MEQ/L (98-107); CREATININE FOR GFR 0.67 MG/DL (0.55-1.02); GLOMERULAR FILTRATION RATE > 60.0 (>60); GLUCOSE, FASTING 90 MG/DL (70-105); POTASSIUM SERUM 4.5 MEQ/L (3.5-5.1); SODIUM LEVEL 141 MEQ/L (136-145); TOTAL PROTEIN 6.8 GM/DL (6.4-8.2)
[2016-12-10 16:53] LABS: FOLATE 10.1 NG/ML; VITAMIN B12 LEVEL 848 PG/ML
[2016-12-10 17:00] LABS: BASO % 0.4 % (0.0-1.0); EOS # 0.1 K/mm3 (0.0-0.50); EOS % 1.4 % (0.0-3.0); LARGE UNSTAINED CELL # 0.1 K/mm3 (0.0-0.4); LARGE UNSTAINED CELL % 1.7 % (0.0-4.0); LYMPH # 2.3 K/mm3 (1.5-6.5); LYMPH % 32.5 % (24.0-44.0); MEAN CORPUSCULAR HGB CONC 33.9 g/dl (32.0-36.5); MEAN CORPUSCULAR VOLUME 85.7 fl (80.0-96.0); MONO # 0.5 K/mm3 (0.0-0.8); MONO % 7.7 % (0.0-5.0); NEUTROPHILS # 3.8 K/mm3 (1.8-7.7); NEUTROPHILS % 56.3 % (36.0-66.0); PLATELET COUNT, AUTOMATED 265 k/mm3 (150-450); RED CELL DISTRIBUTION WIDTH 13.3 % (11.5-14.5); WHITE BLOOD COUNT 6.7 K/mm3 (4.0-10.0)
== END ==
LOC: M WUC 14:23
PROVIDERS: ATTEND Psychiatry & Neurology Neurology
DX: E55.9 Vitamin D deficiency, unspecified (principal); E53.8 Deficiency of other specified B group vitamins

== ENCOUNTER 2016-12-25 14:30 | Outpatient (RCR) | payer OTHER | END 2016-12-26 | LOC: M PT 14:30 | PROVIDERS: ATTEND Nurse Practitioner Family | DX: Z51.89 Encounter for other specified aftercare (principal); M54.5 Low back pain ==

== ENCOUNTER → 2017-02-10 | Outpatient (CLI) | payer OTHER ==
--- NOTE | 2017-02-10 15:39 | REP ---
CERVICAL SPINE, TWO VIEWS: HISTORY: Neck pain. There is no acute fracture or subluxation. The intervertebral discs are normal in height. There is slight loss of the normal lordotic curve. IMPRESSION: There is no acute fracture or subluxation. Signed by Stepan Dick MD 02/10/2017 03:41 P
--- NOTE | 2017-02-11 02:03 | REP ---
Clinical: Pain. Technique: AP, lateral, coned-down views of the lumbosacral spine. Findings: Very mild levoconvex scoliosis cannot be excluded. Alignment is otherwise maintained. No acute fracture / compression injury or subluxation. No obvious, significant degenerative changes. Impression: Cannot exclude mild levoconvex scoliosis. Otherwise normal lumbosacral spine radiographs. Signed by Sravan Mendes MD 02/11/2017 01:55 A
== END ==
LOC: M WUC 14:20
PROVIDERS: ATTEND Nurse Practitioner Adult Health
DX: M54.2 Cervicalgia (principal); M54.5 Low back pain

== ENCOUNTER 2017-03-26 12:54 | Outpatient (RCR) | payer OTHER | END 2017-03-27 | LOC: M PT 12:54 | PROVIDERS: ATTEND Physician Assistant | DX: Z51.89 Encounter for other specified aftercare (principal); M51.36 Other intervertebral disc degeneration, lumbar region; M51.34 Other intervertebral disc degeneration, thoracic region ==

== ENCOUNTER 2017-04-02 13:01 | Outpatient (RCR) | payer OTHER | END 2017-04-27 | LOC: M PT 13:01 | DX: Z51.89 Encounter for other specified aftercare (principal); M51.36 Other intervertebral disc degeneration, lumbar region; M51.34 Other intervertebral disc degeneration, thoracic region | CPT/HCPCS: 97010 ==

== ENCOUNTER → 2017-05-27 | Outpatient (CLI) | payer OTHER | LOC: M EKG 11:31 | DX: R07.9 Chest pain, unspecified (principal) | CPT/HCPCS: 71046 ==

== ENCOUNTER → 2018-05-08 | Outpatient (CLI) | payer OTHER ==
--- NOTE | 2018-05-08 13:03 | REP ---
LEFT FOOT, FOUR VIEWS: HISTORY: Pain. There is no acute fracture or dislocation. The joint spaces are normal in appearance. IMPRESSION:There is no acute fracture or dislocation. Electronically Signed by Stepan Dick MD 05/08/2018 02:00 P
== END ==
LOC: M WUC 10:36
PROVIDERS: ATTEND Physician Assistant
DX: M79.672 Pain in left foot (principal)

== ENCOUNTER 2018-05-28 14:11 | Emergency (ER) | payer OTHER ==
[~2018-05-28] VITALS: Ht 172.7 cm; Wt 70.5 kg
[2018-05-28] MEDS ORDERED: FLUO20CA8 PO (14:18)
[2018-05-28] MEDS ORDERED: BUPR1TAB53 PO (14:18)
[2018-05-28 14:42] LABS: BASO % 0.3 % (0.0-1.0); EOS # 0.1 10^3/uL (0.0-0.50); EOS % 0.7 % (0.0-3.0); HEMATOCRIT 41.4 % (36.0-47.0); HEMOGLOBIN 14.5 g/dl (12.0-15.5); LYMPH # 2.4 10^3/uL (1.5-6.5); LYMPH % 26.6 % (24.0-44.0); MEAN CORPUSCULAR HEMOGLOBIN 31.4 pg (27.0-33.0); MEAN CORPUSCULAR VOLUME 89.6 fl (80.0-96.0); MONO # 0.6 10^3/uL (0.0-0.8); NEUTROPHILS # 5.9 10^3/uL (1.8-7.7); NEUTROPHILS % 65.1 % (36.0-66.0); PLATELET COUNT, AUTOMATED 263 10^3/uL (150-450); RED BLOOD COUNT 4.62 10^6/uL (4.00-5.40); WHITE BLOOD COUNT 9.1 10^3/uL (4.0-10.0)
[2018-05-28 15:02] LABS: HCG, SERUM QUALITATIVE POSITIVE (NEGATIVE)
[2018-05-28 15:12] LABS: ALT/SGPT 22 U/L (12-78); BILIRUBIN,DIRECT 0.1 MG/DL (0.0-0.2); BILIRUBIN,TOTAL 0.4 MG/DL (0.2-1.0); BLOOD UREA NITROGEN 7 MG/DL (7-18); CALCIUM LEVEL 8.8 MG/DL (8.5-10.1); CARBON DIOXIDE LEVEL 27 MEQ/L (21-32); CHLORIDE LEVEL 104 MEQ/L (98-107); CREATININE FOR GFR 0.78 MG/DL (0.55-1.30); GLOMERULAR FILTRATION RATE > 60.0 (>60); GLUCOSE, FASTING 98 MG/DL (70-100); LIPASE 90 U/L (73-393); POTASSIUM SERUM 4.5 MEQ/L (3.5-5.1); SODIUM LEVEL 137 MEQ/L (136-145); TOTAL PROTEIN 7.6 GM/DL (6.4-8.2)
[2018-05-28] MEDS ORDERED: PYRI25TA4 PO (16:59)
[2018-05-28] MEDS ORDERED: UNIS25TA3 PO (16:59)
[2018-05-28 17:09] VITALS: BP 114/66
== END 2018-05-28 17:14 | disposition home or self-care (01) ==
LOC: M ED 14:11
DX: Z32.01 Encounter for pregnancy test, result positive (principal); R11.2 Nausea with vomiting, unspecified; R13.10 Dysphagia, unspecified; F31.9 Bipolar disorder, unspecified; Z79.899 Other long term (current) drug therapy; F17.210 Nicotine dependence, cigarettes, uncomplicated

== ENCOUNTER → 2018-07-08 | Outpatient (CLI) | payer OTHER ==
[~2018-07-08] MED LIST changes: +BUPR1TAB53 PO; +FLUO20CA8 PO; +PYRI25TA4 PO; +UNIS25TA3 PO
[2018-07-08 09:26] LABS: BASO % 0.3 % (0.0-1.0); EOS # 0.1 10^3/uL (0.0-0.50); EOS % 0.8 % (0.0-3.0); HEMATOCRIT 36.8 % (36.0-47.0); HEMOGLOBIN 12.7 g/dl (12.0-15.5); LYMPH # 2.3 10^3/uL (1.5-6.5); LYMPH % 24.5 % (24.0-44.0); MEAN CORPUSCULAR HEMOGLOBIN 31.3 pg (27.0-33.0); MEAN CORPUSCULAR HGB CONC 34.5 g/dl (32.0-36.5); MEAN CORPUSCULAR VOLUME 90.6 fl (80.0-96.0); MONO # 0.8 10^3/uL (0.0-0.8); NEUTROPHILS # 6.1 10^3/uL (1.8-7.7); NEUTROPHILS % 65.9 % (36.0-66.0); PLATELET COUNT, AUTOMATED 249 10^3/uL (150-450); RED BLOOD COUNT 4.06 10^6/uL (4.00-5.40); WHITE BLOOD COUNT 9.3 10^3/uL (4.0-10.0)
[2018-07-08 10:56] LABS: HEPATITIS B SURFACE ANTIGEN NEGATIVE (NEGATIVE); HEPATITIS C VIRUS ABY INDEX 0.1 INDEX (<0.8); HIV 1&2 SCREEN CENTAUR NEGATIVE (NEGATIVE); RUBELLA IgG QUALITATIVE IMMUNE (IMMUNE)
[2018-07-08 10:56] LABS: CHLAMYDIA DNA AMPLIFICATION NEGATIVE (NEGATIVE); GC DNA AMPLIFICATION NEGATIVE (NEGATIVE)
== END ==
LOC: M LAB 08:38
PROVIDERS: ATTEND Advanced Practice Midwife
DX: Z34.81 Encounter for supervision of other normal pregnancy, first trimester (principal); Z3A.00 Weeks of gestation of pregnancy not specified

== ENCOUNTER → 2018-07-30 | Outpatient (REF) | payer OTHER ==
[~2018-07-30] MED LIST changes: +LATA0.0013 OD; -LATA5OPD OD
== END ==
LOC: M LAB REF 13:38
PROVIDERS: ATTEND Advanced Practice Midwife
DX: Z12.4 Encounter for screening for malignant neoplasm of cervix (principal)

== ENCOUNTER → 2018-09-16 | Outpatient (CLI) | payer OTHER ==
--- NOTE | 2018-09-16 16:10 | REP ---
Clinical: Anatomical evaluation. Comparison: None . Findings: Examination demonstrates a single live intrauterine in transverse (head to maternal left) presentation. motion is identified by technologist. Placenta is noted anterior and grade grade zero without evidence for placenta previa or abruption. Amniotic fluid volume is normal. Cervix measures 3.8 cm in length and appears closed. Nuchal cord cannot be excluded. Gestational age by LMP 19 weeks 4 days with UMBERTO 02/06/2019 . Gestational age by current measurements 19 weeks 4 days with UMBERTO 02/06/2019. FHR equals 153 beats per minute. BPD 4.5 cm 19 weeks 4 days HC 16.7 cm 19 weeks 3 days AC 14.1 cm 19 weeks 3 days FL 3.1 cm 19 weeks 5 days HL 3.1 cm 20 weeks 0 days HC/AC ratio 1.18 Estimated weight 290 grams ( 840 fourth percentile). Anatomical assessment demonstrates normal structures including cranium, choroid plexus, cavum, cerebellum/posterior fossa, lungs, four-chamber heart, diaphragm, stomach, cord insertion/three-vessel cord, kidneys/bladder, spine, and extremities. Limited evaluation of the facial features and cardiac ventricular outflow tracts. Impression: 1. Single live intrauterine in transverse lie demonstrating appropriate interval growth. 2. Nuchal cord cannot be excluded. 3. Anatomical limitations as described above may warrant reevaluation and follow-up. Electronically Signed by Sravan Mendes MD 09/16/2018 04:02 P
== END ==
LOC: M RAD 13:53
PROVIDERS: ATTEND Advanced Practice Midwife
DX: Z34.82 Encounter for supervision of other normal pregnancy, second trimester (principal); Z3A.19 19 weeks gestation of pregnancy

== ENCOUNTER → 2018-10-01 | Outpatient (CLI) | payer OTHER ==
--- NOTE | 2018-10-02 03:01 | REP ---
Clinical: Anatomical evaluation. Comparison: 09/16/2018 . Findings: Examination demonstrates a single live intrauterine in cephalic presentation. motion is identified by technologist. Placenta is noted anterior and grade one without evidence for placenta previa or abruption. Amniotic fluid volume is normal. Cervix measures 4.0 cm in length and appears closed. No evidence for nuchal cord. Gestational age by LMP 21 weeks 5 days with UMBERTO 02/06/2019 . Gestational age by current measurements 21 weeks 6 days with UMBERTO 02/05/2019 . FHR equals 156 beats per minute. Estimated weight 471 grams ( 57 percentile). Anatomical assessment demonstrates normal structures including cranium, choroid plexus, cavum, cerebellum/posterior fossa, facial features, lungs, four-chamber heart/ventricular outflow tracts, diaphragm, stomach, cord insertion/three-vessel cord, kidneys/bladder, and extremities. Impression: Single live intrauterine in cephalic presentation demonstrating appropriate interval growth. In conjunction with prior examination, anatomical assessment is complete and normal. Electronically Signed by Sravan Mendes MD 10/02/2018 02:53 A
== END ==
LOC: M RAD 17:33
PROVIDERS: ATTEND Advanced Practice Midwife
DX: Z34.83 Encounter for supervision of other normal pregnancy, third trimester (principal); Z3A.21 21 weeks gestation of pregnancy

== ENCOUNTER 2018-10-09 16:49 | Emergency (ER) | payer OTHER ==
[~2018-10-09] VITALS: Ht 172.7 cm; Wt 75.0 kg
[2018-10-09 16:50] VITALS: BP 125/79
[2018-10-09] MEDS ORDERED: PRENTAB9 PO (17:42)
[2018-10-09] MEDS ORDERED: OMEP40CA2 PO (17:42)
== END 2018-10-09 17:00 | disposition admitted as inpatient to this hospital (09) ==
LOC: M ED 16:49
DX: Z53.29 Procedure and treatment not carried out because of patient's decision for other reasons (principal)

== ENCOUNTER 2018-10-09 17:03 | Outpatient (CLI) | payer OTHER ==
[~2018-10-09] VITALS: Ht 172.7 cm; Wt 75.7 kg
[2018-10-09 17:22] VITALS: BP 110/81
[2018-10-09] MEDS ORDERED: PRENTAB9 PO (17:42)
[2018-10-09] MEDS ORDERED: OMEP40CA2 PO (17:42)
--- NOTE | 2018-10-09 17:43 | IPNPDOC ---
Text Note Date of Service The patient was seen on 10/09/18. NOTE Outpatient 28yo UMBERTO 02/06/19. Presents @ 22w6d with complaints of epigastric pain that "squeezes" x 3-4 days. Reports radiation to her back and SOB when the pain increases. States baseline pain is 4/10. Denies bleeding, lower abdominal cramping or LOF. Diet recall includes cereal, sausage egg and cheese biscuits. Appears uncomfortable. Breathing heavily. FH 150 Abdomen soft, gravid, nontender. No UC GB sono, labs. NPO at present Wendy Boateng CNM Oct 09, 2018 17:43
[2018-10-09] MEDS ORDERED: LACTATED RINGER'S 1000 ML IV ONE (17:45)
[2018-10-09 18:07] LABS: HEMOGLOBIN 12.6 g/dl (12.0-15.5); MEAN CORPUSCULAR HEMOGLOBIN 33.6 pg (27.0-33.0); PLATELET COUNT, AUTOMATED 256 10^3/uL (150-450); RED BLOOD COUNT 3.75 10^6/uL (4.00-5.40)
[2018-10-09] MEDS ORDERED: LR 1,000 ML IV SCH (18:15)
[2018-10-09 18:32] LABS: ALT/SGPT 23 U/L (12-78); AMYLASE 47 U/L (25-115); BILIRUBIN,TOTAL 0.1 MG/DL (0.2-1.0); BLOOD UREA NITROGEN 6 MG/DL (7-18); CALCIUM LEVEL 8.5 MG/DL (8.5-10.1); CARBON DIOXIDE LEVEL 26 MEQ/L (21-32); CHLORIDE LEVEL 107 MEQ/L (98-107); CREATININE FOR GFR 0.49 MG/DL (0.55-1.30); GLOMERULAR FILTRATION RATE > 60.0 (>60); GLUCOSE, FASTING 86 MG/DL (70-100); LIPASE 83 U/L (73-393); POTASSIUM SERUM 3.8 MEQ/L (3.5-5.1); SODIUM LEVEL 141 MEQ/L (136-145); TOTAL PROTEIN 6.8 GM/DL (6.4-8.2)
[2018-10-09 18:54] VITALS: BP 118/74
--- NOTE | 2018-10-09 19:11 | REPVR ---
EXAM: US Abdomen Limited, Right Upper Quadrant EXAM DATE/TIME: 10/09/2018 6:55 PM CLINICAL HISTORY: 28 years old, female; Abdominal pain; Epigastric; ; Additional info: Epigastric pain TECHNIQUE: Imaging protocol: Real-time ultrasound of the abdomen with image documentation. Examination was focused on the right upper quadrant. COMPARISON: No relevant prior studies available. FINDINGS: Liver: Normal. No masses. Gallbladder: Cholelithiasis. 1.7 mm echogenic polyp on the anterior wall of the gallbladder demonstrated as well. No ultrasound evidence of cholecystitis. Common bile duct: Normal. No stones. No dilation. Pancreas: Visualized pancreas is unremarkable. Right kidney: Right kidney measures 10.8 x 5.9 x 6.7 cm. Mild right hydronephrosis. Finding likely related to the gravid status of the patient. Other findings: Common followup measures 3.6 mm. IMPRESSION: 1. Cholelithiasis. 1.7 mm echogenic polyp on the anterior wall of the gallbladder demonstrated as well. No ultrasound evidence of cholecystitis. 2. Mild right hydronephrosis. Finding likely related to the gravid status of the patient. Electronically signed by: Willy Grey On 10/09/2018 19:10:33 PM
--- NOTE | 2018-10-09 19:54 | IPNPDOC ---
Text Note Date of Service The patient was seen on 10/09/18. NOTE Reviewed GB sono showing cholelithiasis and 1.7mm gb polyp Reviewed low fat diet and increased hydration with patient Pt verbalized understanding Discharged home with instructions to keep next appt VS,Fishbone, I+O VS, Fishbone, I+O Laboratory Tests 10/09/18 17:56 Red Blood Count 3.75 L, Mean Corpuscular Volume 96.0, Mean Corpuscular Hemoglobin 33.6 H, Mean Corpuscular Hemoglobin Concent 35.0, Red Cell Distribution Width 12.7, Calcium Level 8.5, Aspartate Amino Transf (AST/SGOT) 13, Alanine Aminotransferase (ALT/SGPT) 23, Alkaline Phosphatase 138 H, Total Bilirubin 0.1 L, Total Protein 6.8, Albumin 3.0 L Vital Signs Date Time Temp Pulse Resp B/P (MAP) Pulse Ox O2 Delivery O2 Flow Rate FiO2 10/09/18 18:54 99.4 80 20 118/74 (76) 100 Wendy Boateng CNM Oct 09, 2018 19:54
== END 2018-10-09 20:14 | disposition home or self-care (01) ==
LOC: M LDO 17:03
PROVIDERS: ATTEND Advanced Practice Midwife
DX: O26.892 Other specified pregnancy related conditions, second trimester (principal); R10.13 Epigastric pain; O99.619 Diseases of the digestive system complicating pregnancy, unspecified trimester; Z3A.22 22 weeks gestation of pregnancy

== ENCOUNTER → 2018-11-12 | Outpatient (CLI) | payer OTHER ==
[~2018-11-12] MED LIST changes: +OMEP40CA2 PO; +PRENTAB9 PO
[2018-11-12 13:06] LABS: BASO # 0.1 10^3/uL (0.0-0.2); BASO % 0.4 % (0.0-1.0); EOS # 0.1 10^3/uL (0.0-0.50); EOS % 1.2 % (0.0-3.0); HEMATOCRIT 34.6 % (36.0-47.0); HEMOGLOBIN 11.7 g/dl (12.0-15.5); LYMPH # 2.1 10^3/uL (1.5-6.5); LYMPH % 18.6 % (24.0-44.0); MEAN CORPUSCULAR HEMOGLOBIN 33.1 pg (27.0-33.0); MEAN CORPUSCULAR HGB CONC 33.8 g/dl (32.0-36.5); MONO % 8.7 % (0.0-5.0); NEUTROPHILS # 7.8 10^3/uL (1.8-7.7); NEUTROPHILS % 69.9 % (36.0-66.0); PLATELET COUNT, AUTOMATED 244 10^3/uL (150-450); RED BLOOD COUNT 3.53 10^6/uL (4.00-5.40); WHITE BLOOD COUNT 11.2 10^3/uL (4.0-10.0)
== END ==
LOC: M SMT 09:42
PROVIDERS: ATTEND Advanced Practice Midwife
DX: Z34.83 Encounter for supervision of other normal pregnancy, third trimester (principal); Z3A.00 Weeks of gestation of pregnancy not specified

== ENCOUNTER 2018-11-26 19:07 | Inpatient (IN) | payer OTHER ==
[~2018-11-26] VITALS: Ht 172.7 cm; Wt 79.3 kg
[2018-11-26 20:30] LABS: HEMOGLOBIN 11.1 g/dl (12.0-15.5); MEAN CORPUSCULAR HGB CONC 34.7 g/dl (32.0-36.5); MEAN CORPUSCULAR VOLUME 95.2 fl (80.0-96.0); PLATELET COUNT, AUTOMATED 243 10^3/uL (150-450); RED BLOOD COUNT 3.36 10^6/uL (4.00-5.40); WHITE BLOOD COUNT 14.7 10^3/uL (4.0-10.0)
[2018-11-26 21:01] LABS: AMPHETAMINES LEVEL URINE NEGATIVE (NEGATIVE); BARBITURATES URINE NEGATIVE (NEGATIVE); BENZODIAZEPINES URINE NEGATIVE (NEGATIVE); CANNABINOIDS URINE NEGATIVE (NEGATIVE); COCAINE METABOLITE URINE NEGATIVE (NEGATIVE); METHADONE URINE NEGATIVE (NEGATIVE); OPIATES URINE NEGATIVE (NEGATIVE); PHENCYCLIDINE URINE NEGATIVE (NEGATIVE)
[2018-11-26 21:11] LABS: ACETAMINOPHEN LEVEL < 2.0 UG/ML (10.0-30.0); ALBUMIN 3.1 GM/DL (3.2-5.2); ALT/SGPT 14 U/L (12-78); BILIRUBIN,DIRECT 0.1 MG/DL (0.0-0.2); BILIRUBIN,TOTAL 0.3 MG/DL (0.2-1.0); BLOOD UREA NITROGEN 3 MG/DL (7-18); CALCIUM LEVEL 8.4 MG/DL (8.5-10.1); CARBON DIOXIDE LEVEL 25 MEQ/L (21-32); CHLORIDE LEVEL 108 MEQ/L (98-107); CREATININE FOR GFR 0.51 MG/DL (0.55-1.30); ETHYL ALCOHOL (ETHANOL) < 0.003 % (0.000-0.010); GLOMERULAR FILTRATION RATE > 60.0 (>60); GLUCOSE, FASTING 84 MG/DL (70-100); POTASSIUM SERUM 3.5 MEQ/L (3.5-5.1); SALICYLATE LEVEL 4.2 MG/DL (5.0-30.0); SODIUM LEVEL 139 MEQ/L (136-145); TOTAL PROTEIN 6.5 GM/DL (6.4-8.2)
[2018-11-26] MEDS ORDERED: MOM 30ML SUSPENSION UDC PO PRN (22:45)
[2018-11-26] MEDS ORDERED: diphenhydrAMINE 25 MG CAP PO PRN (22:45)
[2018-11-26] MEDS ORDERED: ACETAMINOPHEN TAB 650MG DOSE (2X325MG) PO PRN (22:45)
[2018-11-26] MEDS ORDERED: MAALOX 30 ML SUSP *UDC PO PRN (22:45)
[2018-11-27 03:23] VITALS: BP 99/62
--- NOTE | 2018-11-27 16:45 | HPEPDOC ---
General Date of Admission Nov 26, 2018 at 22:41 Date of Service: Nov 27, 2018 Chief Complaint The patient is a 28-year-old female admitted with a reason for visit of MHE. History of Present Illness 28f with hx of depression, anxiety, chronic back pain, migraines, gallstones, active smoker, former substance abuse admitted to [facility] for severe depression and suicidal ideation. She reports she wanted to hurt herself, and she felt she needed to be stabilized. She reports smoking more recently due to stress. She also reports daily headaches for the past year, not associated with photophobia or phonophobia. She had been evaluated by a neurologist in the past however no treatment was offered. She notes that her urine has been darker recently and reports a history of utis that start asymptomatic and then progress to pyelonephritis. A full ROS was performed and negative except as above. Home Medications Scheduled No.137/Iron/Folic Acd ( Vitamin Tablet) 1 Each Tablet, 1 TAB PO DAILY, (Reported) Allergies Coded Allergies: No Known Allergies (Unverified , 08/13/13) Past Medical History Surgical History csx x2 Family History Significant Family History: No pertinent family hx Social History * Smoker: current smoker, greater than 1 pack/day Alcohol: rarely Drugs: denies A-FIB/CHADSVASC A-FIB History Current/History of A-Fib/PAF?: No Current PO Anticoag Therapy: No Age/Risk Factor Scoring CHADSVASC: CHADSVASC Response (Comments) Value Age Risk Factor Age < 65 years old 0 Gender Risk Factor Female 1 Hx of CHF No 0 Hx of HTN No 0 Hx of Stroke/TIA/or VTE No 0 Hx of Diabetes No 0 Hx of Vascular Disease No 0 Total 1 Treatment Treatment ordered: NONE Reason Anticoagulant not given: Not indicated/[id number] Physical Examination General Exam: Positive: Alert, Cooperative Eye Exam: Positive: PERRLA, Conjunctiva & lids normal, EOMI; Negative: Sclera icteric ENT Exam: Positive: Atraumatic, Mucous membr. moist/pink, Pharynx Normal Neck Exam: Positive: Supple; Negative: JVD, thyromegaly Chest Exam: Positive: Clear to auscultation, Normal air movement Heart Exam: Positive: Rate Normal, Regular Rhythm, Normal S1, Normal S2; Negative: Murmurs, Rubs Abdomen Exam: Positive: Normal bowel sounds, Soft; Negative: Tenderness, Hepatospenomegaly Extremity Exam: Positive: Normal pulses; Negative: Clubbing, Cyanosis, Edema Skin Exam: Positive: Nl turgor and temperature, Other skin issue Neuro Exam: Positive: Normal Gait, Normal Speech, Cranial Nerves 3-12 NL, Reflexes 2+ Psych Exam: Positive: Mental status NL, Anxiety, Memory Intact, Oriented x 3; Negative: Mood NL Vital Signs Vital Signs Date Time Temp Pulse Resp B/P (MAP) Pulse Ox O2 Delivery O2 Flow Rate FiO2 11/27/18 03:23 98.6 81 16 99/62 (74) 99 11/27/18 02:22 Room Air Laboratory Data Labs 24H Laboratory Tests 2 11/26/18 20:15: Nucleated Red Blood Cells % (auto) 0.0, Anion Gap 6L, Glomerular Filtration Rate > 60.0, Calcium Level 8.4L, Aspartate Amino Transf (AST/SGOT) 11, Alanine Ami notransferase (ALT/SGPT) 14, Alkaline Phosphatase 138H, Total Bilirubin 0.3, Direct Bilirubin 0.1, Total Protein 6.5, Albumin 3.1L, Albumin/Globulin Ratio 0.91L, Thyroid Stimulating Hormone (TSH) 1.430, Salicylates Level 4.2L, Urine Amphetamines Screen NEGATIVE, Urine Benzodiazepines Screen NEGATIVE, Urine Opiates Screen NEGATIVE, Urine Methadone Screen NEGATIVE, Acetaminophen Level < 2.0L, Urine Barbiturates Screen NEGATIVE, Urine Phencyclidine Screen NEGATIVE, Urine Cocaine Metabolite Screen NEGATIVE, Urine Cannabinoids Screen NEGATIVE, Ethyl Alcohol Level < 0.003 CBC/BMP Laboratory Tests 11/26/18 20:15 Red Blood Count 3.36 L, Mean Corpuscular Volume 95.2, Mean Corpuscular Hemoglobin 33.0, Mean Corpuscular Hemoglobin Concent 34.7, Red Cell Distribution Width 12.4 Assessment/Plan 28f p/w depression Depression per primary psych team leukocytosis/dark urine will check ua/ucx suspect pt is dehydrated headaches will check urine prot/creat ratio to screen for pre-eclampsia however bp is ok and no other signs suggesting would try tylenol if she needs relief pt is reluctant to use tylenol if headache is severe can also try codeine and or reglan smoking would offer nicotine patch 21mg Plan / VTE VTE Prophylaxis Ordered?: No VTE Exclusion Mechanical Proph: Low Risk for VTE VTE Exclusion Pharmacological: At Low Risk for VTE GLORIA LANDERS MD Nov 27, 2018 16:45
[2018-11-27 18:00] VITALS: BP 139/74
[2018-11-27] MEDS ORDERED: RAMELTEON 8 MG TAB (ROZEREM) PO PRN (18:30)
[2018-11-27] MEDS: buPROPion **XL** TABLET 150MG (WELLBUTRIN XL) PO SCH (18:34)
[2018-11-27 19:15] LABS: CREATININE,RANDOM URINE 78.7 MG/DL; TOTAL PROTEIN,RANDOM URINE 14.7 MG/DL (0.0-12.0)
[2018-11-28 06:48] VITALS: BP 104/66
[2018-11-28] MEDS: buPROPion **XL** TABLET 150MG (WELLBUTRIN XL) PO SCH (09:44)
--- NOTE | 2018-11-28 10:15 | MHIPNPDOC ---
[facility] Progress Note Progress Note DATE OF SERVICE: 11/28/18 HISTORY: Per Dr. Turner: "the patient a 28 year old man with a scratch that a 28 year old woman who is currently presents in a depressive episode wi th hopelessness loss of interests energy problems concentration fatigue. In the setting of Psychosocial stressors and conflict with her scratch that boyfriend. She reports that she has stopped working as she has become and due to her inability to drive. She has subsequently been unable to leave the house without having being driven. She reports said she is under multiple stresses including Financial ones. and had begun to endorse Suicidal Thoughts prior to presenting to the ER for several days that have been getting progressively worse." VITAL SIGNS: See below. NEW TEST RESULTS: see below CURRENT MEDICATIONS: See below. MENTAL STATUS EXAMINATION: General: Well dressed with good hygiene Speech: Spontaneous and fluid Thought processes: Linear and logical MSK: Smooth and coordinated gait, no signs of tremors or involuntary orofacial movements Thought content: Future orientated Abstract reasoning, and computation: Intact Description of associations: Intact Denies any suicidal or homicidal ideation. Denies any auditory or visual hallucinations. Does not appear to be responding to internal stimuli. Does not appear to be endorsing any bizarre or paranoid ideation. Judgment: fair Insight: fair Orientation: Alert and orientated 3 Cognition: Grossly normal Recent and remote memory: Intact Attention span and concentration: Intact Fund of knowledge: Adequate Mood: "okay" Affect: Euthymic with a full range DIAGNOSES: Unspecified depressive disorder R/O adjustment d/o vs. MDD tobacco use disorder unspecified trauma disorder ASSESSMENT:Pt seen and states shes's ok just had difficulty sleeping last night even after taking roserem and benadryl, will increase benadryl for insomnia. States she's being social on the milieu which is beneficial. Feels she is tolerating her medications and they're beneficial. She is attending groups and finding them helpful. She denies SI/HI, hallucinations, delusions. Pt feels safe here. MANAGEMENT PLAN: continue Dr. Turner's plan. D/c roserem, start doxepin 25mg qhs for insomnia TIME SPENT: 30 minutes. Vital Signs Vital Signs Date Time Temp Pulse Resp B/P (MAP) Pulse Ox O2 Delivery O2 Flow Rate FiO2 11/28/18 06:48 98.1 86 12 104/66 (79) 11/27/18 03:23 99 11/27/18 02:22 Room Air Laboratory Data 24H Labs Laboratory Tests 2 11/27/18 18:30: Urine Random Creatinine 78.7, Urine Random Total Protein 14.7H Current Medications Current Medications Medications (Trade) Dose Ordered Sig/Viry Route PRN Reason Start Time Stop Time Status Last Admin Dose Admin Acetaminophen (Tylenol Tab) 650 mg Q6HP PRN PO HEADACHE or DISCOMFORT 11/26/18 22:45 Al Hydrox/Mg Hydrox/Simethicone (Mylanta) 30 ml Q4HP PRN PO HEARTBURN/INDIGESTION 11/26/18 22:45 Bupropion HCl (Wellbutrin Xl) 150 mg DAILY PO 11/27/18 09:00 11/28/18 09:44 Diphenhydramine HCl (Benadryl) 25 mg QHSP PRN PO INSOMNIA 11/26/18 22:45 11/27/18 03:08 Home Med (Med Rec Complete!) ASDIRECTED XX 11/27/18 00:30 11/27/18 00:30 DC Magnesium Hydroxide (Milk Of Magnesia) 30 ml DAILYPRN PRN PO CONSTIPATION 11/26/18 22:45 Ramelteon (Rozerem) 8 mg QHSP PRN PO sleep 11/27/18 18:30 11/27/18 21:07 Allergies Coded Allergies: No Known Allergies (Unverified , 08/13/13) JANETTE MILLIGAN DO Nov 28, 2018 10:15
[2018-11-28 18:17] VITALS: BP 141/83
[2018-11-28] MEDS ORDERED: DOXEPIN 25 MG CAP PO SCH (21:00)
[2018-11-28] MEDS: diphenhydrAMINE 50 MG CAP PO PRN (22:20)
[2018-11-29 01:16] VITALS: BP 118/69
[2018-11-29 02:04] VITALS: BP 118/66
[2018-11-29 03:44] LABS: APPEARANCE, URINE CLEAR (CLEAR); BACTERIA, URINE AUTO NEGATIVE (NEGATIVE); BILIRUBIN, URINE AUTO NEGATIVE (NEGATIVE); BLOOD, URINE BLOOD NEGATIVE (NEGATIVE); COLOR, URINE YELLOW (YELLOW); GLUCOSE, URINE (UA) AUTO NEGATIVE (NEGATIVE); KETONE, URINE AUTO TRACE mg/dL (NEGATIVE); LEUKOCYTE ESTERASE, URINE AUTO NEGATIVE (NEGATIVE); NITRITE, URINE AUTO NEGATIVE (NEGATIVE); PROTEIN, URINE AUTO NEGATIVE (NEGATIVE); RBC, URINE AUTO 0 /HPF (0-3); SPECIFIC GRAVITY URINE AUTO 1.002 (1.002-1.035); SQUAMOUS EPITHELIAL CELL UR AU 1 /HPF (0-6); UROBILINOGEN, URINE AUTO 0.2 mg/dL (0.0-2.0); WBC, URINE AUTO 0 /HPF (0-3)
[2018-11-29] MEDS: buPROPion **XL** TABLET 150MG (WELLBUTRIN XL) PO SCH (08:11)
[2018-11-29 18:28] VITALS: BP 125/69
[2018-11-29] MEDS: diphenhydrAMINE 50 MG CAP PO PRN (21:22)
[2018-11-30 06:57] VITALS: BP 113/61
[2018-11-30] MEDS: buPROPion **XL** TABLET 150MG (WELLBUTRIN XL) PO SCH (09:07)
[2018-11-30] MEDS ORDERED: NICO14DI6 TOP (10:02)
[2018-11-30] MEDS ORDERED: BUPR150T3 PO (10:02)
[2018-11-30] MEDS ORDERED: MELA3TAB41 PO (10:41)
[2018-11-30] MEDS ORDERED: DIPH50CA PO (10:41)
--- NOTE | 2018-11-30 10:51 | MHDSPDOC ---
[facility] Discharge Summary Discharge Summary DATE OF ADMISSION: Nov 26, 2018 at 22:41 DATE OF DISCHARGE: 11/30/18 Date of Service: 11/30/2018 Diagnoses Unspecified depressive disorder. Rule out adjustment versus MDD. Tobacco use disorder, severe. History of Present Illness The patient a 28-year old woman who is currently presents in a depressive episode with hopelessness, loss of interest, energy problems, concentration, fatigue in the setting of psychosocial stressors and conflict with her boyfriend. She reports that she has stopped working as she has become and due to her inability to drive, she has subsequently been unable to leave the house without having being driven. She reports that she is under multiple stresses including financial ones and had begun to endorse suicidal thoughts prior to presenting to the ER for several days that have been getting progressively worse. Consultants Involved Hospitalist/PCP screening Treatment and Progress On The Unit The patient was admitted to the unit and initially upon presentation to the ER had resolved any suicidal thoughts. She was admitted and after great discussion on the risks and benefits of treatment, she was started on Wellbutrin 150 mg daily. Discussed the risks in as well as this category ranking and the patient decided that this would be helpful. Additionally, she was started on Rozerem 8 mg for sleep due to category C nature of which was also discussed. The patient did well on the Wellbutrin and subsequently noted no strong effect from the Rozerem and it was subsequently discontinued. She was using Benadryl which a ppeared sufficient for her sleep. However, her sleep in general was disrupted by a fairly rancorous roommate. She appeared to resolve on the unit quickly over the weekend with her hopelessness, depressed mood, and fatigue as well as loss of interests spontaneously resolving. She requested discharge and at that time, did not meet involuntary criteria as she was demonstrating no concerning ideation. She additionally was able to attend to her needs and elected against a further voluntary admission and thus was discharged. Discharge Assessment The patient, a 28-year-old woman, who is presents in a possible adjustment disorder with very mild medication change, produces a strong effect and improvement in her overall affect and ability to attend to her needs. She has multiple stressors at home, which likely provoke her depression and she was strongly recommended to utilize Mushroom Picker to avoid this becoming a problem in the future. Mental Status Examination General: Well dressed with good hygiene Speech: Spontaneous and fluid Thought processes: Linear and logical MSK: Smooth and coordinated gait, no signs of tremors or involuntary orofacial movements Thought content: Future orientated Abstract reasoning, and computation: Intact Description of associations: Intact Description of abnormal or psychotic thoughts: Denies any suicidal or homicidal ideation. Denies any auditory or visual hallucinations. Does not appear to be responding to internal stimuli. Does not appear to be endorsing any bizarre or paranoid ideation. Judgment: fair Insight: fair Orientation: Alert and orientated 3 Cognition: Grossly normal Recent and remote memory: Intact Attention span and concentration: Intact Fund of knowledge: Adequate Mood: "okay" Affect: Euthymic with a full range Follow Up The social work team worked during the predischarge meeting in order to evaluate for further issues of lethality address them fully before discharge. They worked on safety planning with the patient's family members in order to ensure that the patient will have a safe and effective discharge. Time Spent The amount of time spent in the coordination of care for this patient was approximately 30 minutes. Friday Vital Signs/I&Os Vital Signs Date Time Temp Pulse Resp B/P (MAP) Pulse Ox O2 Delivery O2 Flow Rate FiO2 11/30/18 06:57 97.4 100 14 113/61 (78) 11/29/18 01:16 100 11/27/18 02:22 Room Air Laboratory Data Microbiology Microbiology 11/29/18 Urine Culture - Final, Complete Medications Scheduled Bupropion Hcl (Bupropion Xl) 150 Mg Tab.er.24h, 150 MG PO DAILY for mood for 7 Days, #7 Melatonin (Melatonin) 3 Mg Tablet, 3 MG PO QPM for sleep for 30 Days, #30 Nicotine (Nicotine Patch) 14 Mg Patch.td24, 1 PATCH TOP DAILY for smoking cessation for 28 Days, #28 No.137/Iron/Folic Acd ( Vitamin Tablet) 1 Each Tablet, 1 TAB PO DAILY, (Reported) Scheduled PRN Diphenhydramine HCl (Diphenhydramine HCl) 50 Mg Capsule, 50 MG PO QHSP PRN for INSOMNIA for 7 Days, #7 Allergies Coded Allergies: No Known Allergies (Unverified , 08/13/13) FAB SHI DO Nov 30, 2018 10:51
== END 2018-11-30 12:25 | disposition home or self-care (01) | DRG 566 ==
LOC: M ED 19:07 → M PSY 22:41 → M ED INP 22:41 → M PSY 11-27 02:29 → M LDI 11-29 01:49 → M PSY 11-29 03:38
PROVIDERS: ADMIT Psychiatry & Neurology Addiction Medicine; ATTEND Psychiatry & Neurology Addiction Medicine
DX: O99.343 Other mental disorders complicating pregnancy, third trimester (principal); F32.9 Major depressive disorder, single episode, unspecified; Z3A.29 29 weeks gestation of pregnancy; O99.333 Smoking (tobacco) complicating pregnancy, third trimester; F17.210 Nicotine dependence, cigarettes, uncomplicated; F43.9 Reaction to severe stress, unspecified; Z63.0 Problems in relationship with spouse or partner

== ENCOUNTER → 2019-01-07 | Outpatient (CLI) | payer OTHER ==
[~2019-01-07] MED LIST changes: +BUPR150T3 PO; +DIPH50CA PO; +MELA3TAB41 PO; +NICO14DI6 TOP
--- NOTE | 2019-01-07 17:51 | REP ---
Obstetric sonography: History: Growth discrepancy. Findings: Scanning through the gravid uterus demonstrates a viable single intrauterine gestation in a cephalic lie. motion is observed and heart rate is recorded at 144 beats per minute. An anterior grade 2 placenta is seen without evidence of previa or abruption. Amniotic fluid is subjectively normal. No extrauterine abnormalities observed. There has been appropriate interval growth. No anomaly is seen. The following anatomic structures are again identified and felt to be unremarkable: cranium, face and profile, diaphragm, left-sided stomach, three-vessel cord, kidneys and bladder. Biometry chart: BPD 9.0 cm = 36 weeks 4 days HC 31.4 cm = 35 weeks 1 day AC 31.5 cm = 35 weeks 3 days FL 7.0 cm = 36 weeks 0 days HL 6.2 cm = 36 weeks 0 days HC/AC ratio normal 1.0. Cephalic index normal 0.83. Estimated weight 2742 grams, 6 pounds 0 ounces, 50th percentile for 35 weeks 5 days. JUN normal 10.4 cm. S/D ratio normal 2.48. Impression: Viable single intrauterine gestation at 35 weeks 6 days by today's composite sonographic criteria. Expected gestational age estimate based on prior sonography 35 weeks 5 days. UMBERTO by prior sonography February 06, 2019. Appropriate interval growth. Electronically Signed by Larry Harris MD 01/07/2019 06:20 P
== END ==
LOC: M RAD 16:53
PROVIDERS: ATTEND Obstetrics & Gynecology
DX: O26.843 Uterine size-date discrepancy, third trimester (principal); Z3A.35 35 weeks gestation of pregnancy

== ENCOUNTER → 2019-01-11 | Outpatient (REF) | payer OTHER | LOC: M LAB REF 17:40 | PROVIDERS: ATTEND Advanced Practice Midwife | DX: O34.219 Maternal care for unspecified type scar from previous cesarean delivery (principal) ==

== ENCOUNTER → 2019-01-19 | Outpatient (CLI) | payer OTHER | LOC: M SMT 11:01 | PROVIDERS: ATTEND Advanced Practice Midwife | DX: O34.219 Maternal care for unspecified type scar from previous cesarean delivery (principal); Z3A.00 Weeks of gestation of pregnancy not specified ==

== ENCOUNTER 2019-02-15 06:56 | Inpatient (IN) | payer OTHER ==
[2019-02-15] VITALS (7 sets, daily range): BP systolic 118–138; BP diastolic 69–84
[~2019-02-15] VITALS: Ht 172.7 cm; Wt 82.3 kg
[~2019-02-15 06:56] MED LIST changes: +EVEN500C2 PO; +FLUO10CA8 PO; -OMEP40CA2 PO; +OMEP40CA97 PO
[2019-02-15] MEDS ORDERED: LACTATED RINGER'S 1000 ML IV ONE (08:00)
[2019-02-15] MEDS ORDERED: BICITRA 30ML SOLN UDC PO ONE (08:00)
[2019-02-15] MEDS ORDERED: ceFAZolin SOD 2 GM in IV 1 EA IV ONE (08:00)
[2019-02-15 08:23] LABS: HEMOGLOBIN 10.4 g/dl (12.0-15.5); MEAN CORPUSCULAR HEMOGLOBIN 30.6 pg (27.0-33.0); MEAN CORPUSCULAR HGB CONC 33.5 g/dl (32.0-36.5); MEAN CORPUSCULAR VOLUME 91.2 fl (80.0-96.0); PLATELET COUNT, AUTOMATED 294 10^3/uL (150-450); WHITE BLOOD COUNT 11.8 10^3/uL (4.0-10.0)
[2019-02-15] MEDS ORDERED: LR 1,000 ML IV SCH ×3 (09:00→13:00)
[2019-02-15] MEDS ORDERED: MORPHINE PRES-FREE INJ 10 MG/10 ML VIAL (J2274) As Ordered ONE (09:33)
[2019-02-15] MEDS ORDERED: OXYTOCIN INJ 10 UNITS/ML VIAL (J2590) As Ordered ONE ×2 (10:12→10:52)
[2019-02-15] MEDS ORDERED: ONDANSETRON 4MG/2ML VIAL (J2405) As Ordered ONE (10:27)
[2019-02-15] MEDS ORDERED: KETOROLAC 60 MG/2 ML VIAL (J1885) As Ordered ONE (10:27)
[2019-02-15] MEDS ORDERED: KETAMINE HCL 200 MG/20 ML VIAL As Ordered ONE (10:56)
[2019-02-15] MEDS ORDERED: fentaNYL 100 MCG/2 ML INJECTION (J3010) As Ordered ONE (11:09)
[2019-02-15] MEDS ORDERED: dexameTHASONE 4 MG/ML 1ML VIAL (J1100) As Ordered ONE (11:26)
[2019-02-15] MEDS ORDERED: PROPOFOL 200 MG/20 ML VIAL As Ordered ONE ×2 (11:26→12:03)
[2019-02-15] MEDS ORDERED: ACETAMINOPHEN 1000MG 100ML IV BTL (OFIRMEV) (J0131 PER 10MG) As Ordered ONE (11:33)
[2019-02-15] MEDS ORDERED: ONDANSETRON 4MG/2ML VIAL (J2405) IV PRN ×2 (12:45→13:00)
[2019-02-15] MEDS ORDERED: PROMETHAZINE 25 MG TAB PO PRN (12:45)
[2019-02-15] MEDS ORDERED: ACETAMINOPHEN 500 MG TAB PO PRN (12:45)
[2019-02-15] MEDS ORDERED: MEASLES,MUMPS,RUBELLA VACCINE INJ (MMR-II) (90707) SC SCH (13:00)
[2019-02-15] MEDS ORDERED: NALOXONE INJ 0.4 MG/1 ML VIAL (J2310) IV PRN ×2 (13:00)
[2019-02-15] MEDS ORDERED: PERCOCET 5MG/325MG TAB PO PRN (13:00)
[2019-02-15] MEDS ORDERED: OXYTOCIN DRIP 30 UNITS in IV 1 EA IV SCH (13:00)
[2019-02-15] MEDS ORDERED: METOCLOPRAMIDE INJ 10MG/2ML VIAL (J2765) IV PRN (13:00)
[2019-02-15] MEDS ORDERED: NALBUPHINE HCL 10 MG/ML AMP (J2300) IV PRN (13:00)
[2019-02-15] MEDS ORDERED: fentaNYL 100 MCG/2 ML INJECTION (J3010) IV PRN (13:00)
[2019-02-15] MEDS ORDERED: diphenhydrAMINE INJ 50MG/ML VIAL (J1200) IV PRN (13:00)
[2019-02-15] MEDS ORDERED: RHOGAM 300 MCG (1500 IU) INJ (J2790) IM SCH (13:00)
[2019-02-15] MEDS ORDERED: METHYLERGONOVINE MALEATE 0.2 MG/ML VIAL (J2210) As Ordered ONE (13:54)
[2019-02-15] MEDS ORDERED: METHYLERGONOVINE MALEATE 0.2 MG/ML VIAL (J2210) IM STA (13:57)
[2019-02-15] MEDS: PRENATAL VITAMINS CHEWABLE TABLET PO SCH (14:42)
[2019-02-15] MEDS: PERCOCET 5MG/325MG TAB PO PRN ×2 (14:43→22:24)
[2019-02-15] MEDS: DOCUSATE SODIUM 100 MG CAP PO SCH (20:07)
[2019-02-15] MEDS: KETOROLAC 30 MG/ML VIAL (J1885) IV SCH (20:07)
[2019-02-16] VITALS (7 sets, daily range): BP systolic 102–132; BP diastolic 58–78
[2019-02-16] MEDS: KETOROLAC 30 MG/ML VIAL (J1885) IV SCH ×2 (02:00→08:00)
[2019-02-16] MEDS: PERCOCET 5MG/325MG TAB PO PRN ×3 (02:00→16:44)
[2019-02-16 07:17] LABS: HEMATOCRIT 25.1 % (36.0-47.0); HEMOGLOBIN 8.5 g/dl (12.0-15.5); MEAN CORPUSCULAR HEMOGLOBIN 31.7 pg (27.0-33.0); MEAN CORPUSCULAR HGB CONC 33.9 g/dl (32.0-36.5); MEAN CORPUSCULAR VOLUME 93.7 fl (80.0-96.0); PLATELET COUNT, AUTOMATED 269 10^3/uL (150-450); RED BLOOD COUNT 2.68 10^6/uL (4.00-5.40); WHITE BLOOD COUNT 16.2 10^3/uL (4.0-10.0)
[2019-02-16] MEDS: DOCUSATE SODIUM 100 MG CAP PO SCH ×2 (08:04→21:33)
[2019-02-16] MEDS: PRENATAL VITAMINS CHEWABLE TABLET PO SCH (08:04)
[2019-02-16] MEDS: buPROPion **XL** TABLET 150MG (WELLBUTRIN XL) PO SCH (08:58)
[2019-02-16] MEDS: FLUoxetine 10 MG CAP PO SCH (10:20)
[2019-02-16] MEDS ORDERED: DOCU100C16 PO (11:23)
[2019-02-16] MEDS ORDERED: IBUP80TA PO (11:23)
[2019-02-16] MEDS ORDERED: PERCOCET PO (11:23)
[2019-02-16] MEDS: IBUPROFEN 800 MG TAB PO SCH (16:03)
--- NOTE | 2019-02-16 16:59 | REP ---
Two-view chest: 02/16/2019. Indication: Chest pain. Comparison: 05/27/2017. Findings: The lungs are clear. There is no pleural effusion or pneumothorax. The cardiomediastinal silhouette is unremarkable. Impression: Clear lungs. Electronically Signed by Carlos De DO 02/16/2019 04:50 P
[2019-02-16 18:15] LABS: HEMATOCRIT 25.4 % (36.0-47.0); HEMOGLOBIN 8.3 g/dl (12.0-15.5); MEAN CORPUSCULAR HEMOGLOBIN 31.1 pg (27.0-33.0); MEAN CORPUSCULAR HGB CONC 32.7 g/dl (32.0-36.5); MEAN CORPUSCULAR VOLUME 95.1 fl (80.0-96.0); PLATELET COUNT, AUTOMATED 278 10^3/uL (150-450); RED BLOOD COUNT 2.67 10^6/uL (4.00-5.40); WHITE BLOOD COUNT 12.3 10^3/uL (4.0-10.0)
[2019-02-16] MEDS ORDERED: MORPHINE 4 MG/ML 1ML VIAL/SYRINGE (J2270) IV PRN (19:15)
[2019-02-16 19:20] LABS: ALBUMIN 2.4 GM/DL (3.2-5.2); ALT/SGPT 19 U/L (12-78); BILIRUBIN,TOTAL 0.3 MG/DL (0.2-1.0); BLOOD UREA NITROGEN 7 MG/DL (7-18); CARBON DIOXIDE LEVEL 24 MEQ/L (21-32); CHLORIDE LEVEL 107 MEQ/L (98-107); CREATININE FOR GFR 0.79 MG/DL (0.55-1.30); GLOMERULAR FILTRATION RATE > 60.0 (>60); GLUCOSE, FASTING 117 MG/DL (70-100); POTASSIUM SERUM 3.5 MEQ/L (3.5-5.1); SODIUM LEVEL 139 MEQ/L (136-145); TOTAL PROTEIN 5.3 GM/DL (6.4-8.2); TROPONIN I < 0.02 NG/ML (< 0.10)
[2019-02-17] MEDS: IBUPROFEN 800 MG TAB PO SCH ×2 (00:37→08:35)
[2019-02-17] MEDS: PERCOCET 5MG/325MG TAB PO PRN ×2 (05:13→14:52)
[2019-02-17 05:48] VITALS: BP 117/62
[2019-02-17 08:16] LABS: HEMATOCRIT 24.3 % (36.0-47.0); MEAN CORPUSCULAR HEMOGLOBIN 31.4 pg (27.0-33.0); MEAN CORPUSCULAR HGB CONC 32.9 g/dl (32.0-36.5); MEAN CORPUSCULAR VOLUME 95.3 fl (80.0-96.0); PLATELET COUNT, AUTOMATED 251 10^3/uL (150-450); RED BLOOD COUNT 2.55 10^6/uL (4.00-5.40); WHITE BLOOD COUNT 10.5 10^3/uL (4.0-10.0)
[2019-02-17] MEDS: PRENATAL VITAMINS CHEWABLE TABLET PO SCH (08:34)
[2019-02-17] MEDS: DOCUSATE SODIUM 100 MG CAP PO SCH (08:34)
[2019-02-17] MEDS: buPROPion **XL** TABLET 150MG (WELLBUTRIN XL) PO SCH (08:35)
[2019-02-17] MEDS: FLUoxetine 10 MG CAP PO SCH (09:28)
--- NOTE | 2019-02-17 10:35 | ECGEPIP ---
[facility] Test Date: 2019-02-16 Pat Name: TERRIE ABURTO Department: Room: [place] [address] Gender: Female Custodian: SHERI : 1990 Requested By: ALLEN Stein Order Number: [id number] Reading MD: Balwinder Colon Measurements Intervals [place] Rate: 101 P: 74 VA: 125 QRS: 71 QRSD: 85 T: 17 QT: 339 QTc: 440 Interpretive Statements Sinus tachycardia Nonspecific ST/T-wave abnormalities new from 05/27/17 Clinical correlation advised Electronically Signed on 02-17-2019 10:34:59 EDT by Balwinder Colon
--- NOTE | 2019-02-17 12:02 | REP ---
Left lower extremity Duplex Doppler venous ultrasound: Real time compression and duplex Doppler interrogation of the left lower extremity deep venous system is performed. The left common femoral, superficial femoral and popliteal veins are fully compressible with transducer pressure and demonstrate normal spontaneous and phasic flow, without evidence of deep venous thrombosis. Impression: No evidence of deep venous thrombosis of the left lower extremity femoral popliteal venous system. Electronically Signed by Rudy Patel MD 02/17/2019 11:53 A
== END 2019-02-17 15:20 | disposition home or self-care (01) | DRG 540 ==
LOC: M LDI 06:56 → M OBS 13:21
PROVIDERS: ADMIT Obstetrics & Gynecology; ATTEND Obstetrics & Gynecology
PROC: 0UB70ZZ Excision of Bilateral Fallopian Tubes, Open Approach (ICD-10-PCS; 2019-02-15)
PROC: 10D00Z1 Extraction of Products of Conception, Low, Open Approach (ICD-10-PCS; principal; 2019-02-15 09:30)
DX: O34.211 Maternal care for low transverse scar from previous cesarean delivery (principal); O48.0 Post-term pregnancy; Z3A.41 41 weeks gestation of pregnancy; Z37.0 Single live birth; Z30.2 Encounter for sterilization; N99.71 Accidental puncture and laceration of a genitourinary system organ or structure during a genitourinary system procedure

== ENCOUNTER 2020-05-23 15:50 | Emergency (ER) | payer OTHER ==
[~2020-05-23] VITALS: Ht 172.7 cm; Wt 76.6 kg
[~2020-05-23 15:50] MED LIST changes: -BUPR150T3 PO; +BUPR150T4 PO; +DOCU100C16 PO; +FLUO10CA16 PO; -FLUO10CA8 PO; +FLUO20CA20 PO; -FLUO20CA8 PO; +IBUP80TA PO; +MELA3TAB30 PO; -MELA3TAB41 PO; +PERCOCET PO
[2020-05-23] MEDS ORDERED: CYCL-707 (15:57)
[2020-05-23] MEDS ORDERED: HYDR-3363 (15:57)
[2020-05-23] MEDS ORDERED: KETOROLAC TROMETHAMINE 10 MG TAB PO ONE (17:45)
[2020-05-23 18:09] LABS: BASO # 0.1 10^3/uL (0.0-0.2); BASO % 0.7 % (0.0-1.0); EOS # 0.2 10^3/uL (0.0-0.5); EOS % 1.9 % (0.0-3.0); HEMATOCRIT 41.5 % (36.0-47.0); HEMOGLOBIN 13.5 g/dl (12.0-15.5); LYMPH # 2.5 10^3/uL (1.5-5.0); LYMPH % 31.4 % (24.0-44.0); MEAN CORPUSCULAR HEMOGLOBIN 29.6 pg (27.0-33.0); MEAN CORPUSCULAR HGB CONC 32.5 g/dl (32.0-36.5); MONO # 0.6 10^3/uL (0.0-0.8); MONO % 7.8 % (0.0-5.0); NEUTROPHILS # 4.7 10^3/uL (1.5-8.5); NEUTROPHILS % 57.8 % (36.0-66.0); PLATELET COUNT, AUTOMATED 282 10^3/uL (150-450); RED BLOOD COUNT 4.56 10^6/uL (4.00-5.40); WHITE BLOOD COUNT 8.1 10^3/uL (4.0-10.0)
[2020-05-23 18:20] LABS: INR 0.88; PARTIAL THROMBOPLASTIN TIME 27.3 SECONDS (24.2-38.5); PROTHROMBIN TIME 12.1 SECONDS (12.5-14.3)
--- NOTE | 2020-05-23 18:54 | REPVR ---
PROCEDURE INFORMATION: Exam: CT Cervical Spine Without Contrast Exam date and time: 05/23/2020 6:36 PM Age: 29 years old Clinical indication: Pain; Cervicalgia; Additional info: Pain/decreased rom TECHNIQUE: Imaging protocol: Computed tomography images of the cervical spine without contrast. Radiation optimization: All CT scans at this facility use at least one of these dose optimization techniques: automated exposure control; mA and/or kV adjustment per patient size (includes targeted exams where dose is matched to clinical indication); or iterative reconstruction. COMPARISON: CR SPINE CERVICAL AP/LAT 02/10/2017 2:44 PM FINDINGS: Bones/joints: There is mild reversal of the normal cervical lordosis. No acute fracture is identified. There is a tiny ossific density near the posterior/superior margin of the left C5 facet which may be due to old trauma or degenerative. Discs/Spinal canal/Neural foramina: No significant spinal canal stenosis or neural foraminal narrowing. Lungs: Lung apices are normal. Soft tissues: Unremarkable. IMPRESSION: No acute abnormality. Electronically signed by: Willis Arce On 05/23/2020 18:54:46 PM
[2020-05-23] MEDS ORDERED: ROBA750T4 PO (19:05)
[2020-05-23 19:27] VITALS: BP 123/84
== END 2020-05-23 19:28 | disposition home or self-care (01) ==
LOC: M ED 15:50
DX: M62.838 Other muscle spasm (principal); N39.0 Urinary tract infection, site not specified; F41.9 Anxiety disorder, unspecified; F31.9 Bipolar disorder, unspecified; F17.210 Nicotine dependence, cigarettes, uncomplicated; Z79.899 Other long term (current) drug therapy; Z86.69 Personal history of other diseases of the nervous system and sense organs

== ENCOUNTER 2020-07-02 05:31 | Emergency (ER) | payer OTHER ==
[~2020-07-02] VITALS: Ht 172.7 cm; Wt 77.9 kg
[~2020-07-02 05:31] MED LIST changes: +BUPR150T12 PO; -BUPR150T4 PO; +CYCL-707; +HYDR-3363; +ROBA750T4 PO
[2020-07-02 06:06] LABS: BASO # 0.1 10^3/uL (0.0-0.2); BASO % 0.4 % (0.0-1.0); EOS % 0.2 % (0.0-3.0); HEMOGLOBIN 13.2 g/dl (12.0-15.5); LYMPH # 1.8 10^3/uL (1.5-5.0); LYMPH % 14.7 % (24.0-44.0); MEAN CORPUSCULAR HEMOGLOBIN 29.7 pg (27.0-33.0); MEAN CORPUSCULAR HGB CONC 33.8 g/dl (32.0-36.5); MEAN CORPUSCULAR VOLUME 87.8 fl (80.0-96.0); MONO # 0.8 10^3/uL (0.0-0.8); NEUTROPHILS # 9.2 10^3/uL (1.5-8.5); NEUTROPHILS % 77.3 % (36.0-66.0); PLATELET COUNT, AUTOMATED 309 10^3/uL (150-450); RED BLOOD COUNT 4.44 10^6/uL (4.00-5.40); WHITE BLOOD COUNT 11.9 10^3/uL (4.0-10.0)
[2020-07-02 06:43] LABS: ALT/SGPT 25 U/L (12-78); BILIRUBIN,DIRECT 0.1 MG/DL (0.0-0.2); BILIRUBIN,TOTAL 0.4 MG/DL (0.2-1.0); BLOOD UREA NITROGEN 7 MG/DL (7-18); CALCIUM LEVEL 8.8 MG/DL (8.5-10.1); CARBON DIOXIDE LEVEL 25 MEQ/L (21-32); CHLORIDE LEVEL 105 MEQ/L (98-107); CREATININE FOR GFR 0.84 MG/DL (0.55-1.30); GLOMERULAR FILTRATION RATE > 60.0 (>60); GLUCOSE, FASTING 116 MG/DL (70-100); LIPASE 62 U/L (73-393); POTASSIUM SERUM 3.9 MEQ/L (3.5-5.1); SODIUM LEVEL 138 MEQ/L (136-145); TOTAL PROTEIN 7.4 GM/DL (6.4-8.2)
[2020-07-02] MEDS ORDERED: NS 1,000 ML IV ONE (07:05)
--- NOTE | 2020-07-02 08:15 | REPVR ---
PROCEDURE INFORMATION: Exam: US Abdomen, Limited; Right Upper Quadrant Exam date and time: 07/02/2020 7:50 AM Age: 29 years old Clinical indication: Abdominal pain; Acute; Additional info: Right upper quadrant pain TECHNIQUE: Imaging protocol: US abdomen. Real time ultrasound with image documentation. Limited exam focused on the right upper quadrant. COMPARISON: GALLBLADDER US 10/09/2018 6:18 PM FINDINGS: Liver: Normal hepatic echotexture. Gallbladder: Echogenic non-mobile gallstones are present within the gallbladder neck. No abnormal gallbladder wall thickening. No abnormal gallbladder dilation. No pericholecystic fluid. Common bile duct: Common bile duct diameter = 0.46 cm. No intrahepatic or extrahepatic bile duct dilation is imaged. Pancreas: The pancreas is incompletely visualized. The visualized portion of the pancreas is unremarkable. Right kidney: Right kidney length = 10.1 cm. No right hydronephrosis. Intraperitoneal space: No ascites is imaged. IMPRESSION: Cholecystolithiasis. Non-mobile gallstones are present at the gallbladder neck. No sonographic evidence of cholecystitis. Electronically signed by: Jayant Hsu On 07/02/2020 08:15:53 AM
[2020-07-02 08:30] VITALS: BP 115/75
== END 2020-07-02 08:45 | disposition home or self-care (01) ==
LOC: M ED 05:31
DX: K80.70 Calculus of gallbladder and bile duct without cholecystitis without obstruction (principal); F33.9 Major depressive disorder, recurrent, unspecified; F41.9 Anxiety disorder, unspecified; Z87.891 Personal history of nicotine dependence; Z79.899 Other long term (current) drug therapy

== ENCOUNTER → 2020-07-26 | Outpatient (CLI) | payer OTHER ==
[~2020-07-26] MED LIST changes: +NAPR-855
== END ==
LOC: M LABSMTC 10:23
PROVIDERS: ATTEND Anesthesiology
DX: Z01.818 Encounter for other preprocedural examination (principal); Z20.822 Contact with and (suspected) exposure to COVID-19

== ENCOUNTER → 2020-07-28 | Outpatient (CLI) | payer OTHER ==
--- NOTE | 2020-07-28 12:49 | REPVR ---
PROCEDURE INFORMATION: Exam: MR Cervical Spine Without Contrast Exam date and time: 07/28/2020 11:46 AM Age: 29 years old Clinical indication: Pain; Cervicalgia; Additional info: Cervical disc degeneration TECHNIQUE: Imaging protocol: Multiplanar magnetic resonance images of the cervical spine without contrast. COMPARISON: CT Spine,cervical w/o contrast 05/23/2020 6:37 PM FINDINGS: Vertebrae: There is straightening of the cervical spine which could be secondary to positioning or muscle spasm. The cervical vertebral bodies are normal height and alignment.No acute fracture or dislocation is seen.The atlantoaxial articulation is normal. Spinal cord: The cervical spinal cord is normal in thickness and signal intensity.There is no cord compression or intramedullary signal abnormality. Spinal epidural space: There is no evidence for epidural mass or hemorrhage. C2-C3: No significant disc disease. No significant spinal stenosis. C3-C4: There is no significant degenerative disc herniation.The spinal canal and neural foramina are patent and without significant stenosis. C4-C5: There is no significant degenerative disc herniation.The spinal canal and neural foramina are patent and without significant stenosis. C5-C6: Mildly reduced in height and T2 signal indicating degeneration. Small diffuse posterior herniation with posterior central annular tear.There is bilateral uncovertebral hypertrophic changes.The facet joints demonstrate mild degenerative hypertrophy and sclerosis.There is mild spinal canal narrowing, with an AP canal dimension of 10 mm. There is mild bilateral foraminal stenosis. C6-C7: There is a mild diffuse posterior bulge causing mild effacement of the thecal sac.The spinal canal and neural foramina are patent and without significant stenosis. C7-T1: There is no significant degenerative disc herniation.The spinal canal and neural foramina are patent and without significant stenosis. Soft tissues: The prevertebral soft tissues appear normal. Brain: The visualized brain parenchyma is unremarkable. Vertebral arteries: Expected flow voids in the vertebral arteries. IMPRESSION: 1. MRI of the cervical spine reveals degenerative spondylitic changes and degenerative disc disease as described above. 2. The cervical spinal cord is normal in thickness and signal intensity.There is no cord compression or intramedullary signal abnormality. Electronically signed by: Perico Brian On 07/28/2020 12:50:04 PM
== END ==
LOC: M RAD 10:37
PROVIDERS: ATTEND Orthopaedic Surgery
DX: M20.30 Hallux varus (acquired), unspecified foot (principal)

== ENCOUNTER 2020-07-31 12:49 | Day surgery (SDC) | payer OTHER ==
[~2020-07-31] VITALS: Ht 172.7 cm; Wt 77.1 kg
[~2020-07-31 12:49] MED LIST changes: +AMPICILLIN SOD/SULBACTAM SOD 3 GM in D5W MINI-BAG PLUS 100 ML IV ONE; +CelecoXIB (CeleBREX) 100 MG CAP PO ONE; +LIDOCAINE 1% MDV 20ML VIAL SQ PRN; +LIDOCAINE 2% 100MG/5ML SDV (FOR ANES.) As Ordered ONE; +LR 1,000 ML IV ONE; +MIDAZOLAM INJ 2MG/2ML VIAL (J2250 PER 1MG) As Ordered ONE; +ONDANSETRON 4MG/2ML VIAL As Ordered ONE; +PHENYLephrine 500MCG 5ML (100MCG/ML) SYRINGE As Ordered ONE; +ROCURONIUM BROMIDE 50 MG/5 ML VIAL As Ordered ONE; +SUGAMMADEX SODIUM 500 MG/5 ML VIAL (BRIDION) As Ordered ONE; +dexameTHASONE 4 MG/ML 1ML VIAL (J1100 PER 1MG) As Ordered ONE; +ePHEDrine SULFATE 25 MG/5 ML(5MG/ML) SYRINGE As Ordered ONE; +fentaNYL 250 MCG/5 ML INJECTION (J3010) As Ordered ONE; +propofoL 200 MG/20 ML VIAL As Ordered ONE
[2020-07-31] MEDS ORDERED: LIDOCAINE 1% SDV 30ML VIAL As Ordered ONE (15:04)
[2020-07-31] MEDS ORDERED: BUPIVACAINE HCL 0.25% 30ML VIAL As Ordered ONE (15:05)
[2020-07-31] MEDS ORDERED: ESMOLOL INJ 100MG/10ML VIAL As Ordered ONE (15:38)
[2020-07-31] MEDS ORDERED: ACETAMINOPHEN 1000MG 100ML IV BTL (OFIRMEV) (J0131 PER 10MG) As Ordered ONE (15:48)
[2020-07-31] MEDS ORDERED: fentaNYL 100 MCG/2 ML INJECTION (J3010) As Ordered ONE (17:09)
[2020-07-31] MEDS: fentaNYL 100 MCG/2 ML INJECTION (J3010) IV PRN ×4 (17:12→18:11)
[2020-07-31] MEDS ORDERED: LR 1,000 ML IV SCH (17:15)
[2020-07-31] MEDS ORDERED: ONDANSETRON 4MG/2ML VIAL IV PRN ×2 (17:15→17:55)
[2020-07-31] MEDS: oxyCODONE 5MG TAB PO PRN ×2 (17:20→17:56)
[2020-07-31] MEDS ORDERED: KETOROLAC 30 MG/ML 1ML VIAL As Ordered ONE (17:24)
[2020-07-31] MEDS ORDERED: METOCLOPRAMIDE INJ 10MG/2ML VIAL (J2765 PER 1) As Ordered ONE (17:52)
[2020-07-31] MEDS ORDERED: PERCOCET 5MG/325MG TAB PO PRN (17:55)
[2020-07-31] MEDS ORDERED: KETOROLAC 30 MG/ML 1ML VIAL IV PRN (17:55)
[2020-07-31] MEDS ORDERED: METOCLOPRAMIDE INJ 10MG/2ML VIAL (J2765 PER 1) IV ONE (18:00)
[2020-07-31] MEDS ORDERED: HYDROMORPHONE HCL 0.5 MG/ 0.5 ML SYRINGE (J1170 PER 1) IV PRN (18:25)
[2020-07-31 19:10] VITALS: BP 133/85
== END 2020-07-31 19:30 | disposition home or self-care (01) ==
LOC: M SDC 12:49
PROVIDERS: ATTEND Surgery
DX: K80.20 Calculus of gallbladder without cholecystitis without obstruction (principal); G43.909 Migraine, unspecified, not intractable, without status migrainosus; F43.10 Post-traumatic stress disorder, unspecified; F31.9 Bipolar disorder, unspecified; F32.9 Major depressive disorder, single episode, unspecified; F41.9 Anxiety disorder, unspecified; F17.290 Nicotine dependence, other tobacco product, uncomplicated
CPT/HCPCS: 47562; 81025; 88304; J0131; J1100; J1170; J1885; J2250; J2370; J2405; J2765; J3010; S2900

== ENCOUNTER 2020-09-22 10:15 | Outpatient (RCR) | payer OTHER ==
[~2020-09-22 10:15] MED LIST changes: -AMPICILLIN SOD/SULBACTAM SOD 3 GM in D5W MINI-BAG PLUS 100 ML IV ONE; -CelecoXIB (CeleBREX) 100 MG CAP PO ONE; -LIDOCAINE 1% MDV 20ML VIAL SQ PRN; -LIDOCAINE 2% 100MG/5ML SDV (FOR ANES.) As Ordered ONE; -LR 1,000 ML IV ONE; -MIDAZOLAM INJ 2MG/2ML VIAL (J2250 PER 1MG) As Ordered ONE; -ONDANSETRON 4MG/2ML VIAL As Ordered ONE; -PHENYLephrine 500MCG 5ML (100MCG/ML) SYRINGE As Ordered ONE; -ROCURONIUM BROMIDE 50 MG/5 ML VIAL As Ordered ONE; -SUGAMMADEX SODIUM 500 MG/5 ML VIAL (BRIDION) As Ordered ONE; -dexameTHASONE 4 MG/ML 1ML VIAL (J1100 PER 1MG) As Ordered ONE; -ePHEDrine SULFATE 25 MG/5 ML(5MG/ML) SYRINGE As Ordered ONE; -fentaNYL 250 MCG/5 ML INJECTION (J3010) As Ordered ONE; -propofoL 200 MG/20 ML VIAL As Ordered ONE
== END 2020-09-25 ==
LOC: M PT 10:15
PROVIDERS: ATTEND Physician Assistant
DX: M50.322 Other cervical disc degeneration at C5-C6 level (principal)

== ENCOUNTER 2020-10-20 10:00 | Outpatient (RCR) | payer OTHER ==
[~2020-10-20 10:00] MED LIST changes: +OMEP40CA4 PO; -OMEP40CA97 PO
== END 2020-10-25 ==
LOC: M PT 10:00
PROVIDERS: ATTEND Physician Assistant
DX: M50.322 Other cervical disc degeneration at C5-C6 level (principal)

== ENCOUNTER → 2024-11-25 | Outpatient (REF) ==
[~2024-11-25] MED LIST changes: +BUPR150T15 PO; -BUPR1TAB53 PO; +FLUO-290 PO; +FLUO-96 PO; -FLUO10CA16 PO; -FLUO20CA20 PO
== END ==
LOC: M LAB REF 20:43
DX: Z01.89 Encounter for other specified special examinations (principal)

== ENCOUNTER → 2024-12-24 | Outpatient (CLI) | payer OTHER ==
[~2024-12-24] MED LIST changes: -DIPH50CA PO; +DIPH50CA31 PO; -IBUP-1022 PO; +IBUP600T42 PO
[2024-12-24 13:01] LABS: ALT/SGPT 12 U/L (7.0-40); AST/SGOT 9 U/L (<34); CALCIUM LEVEL 9.6 MG/DL (8.5-10.1); CARBON DIOXIDE LEVEL 30 MMOL/L (20-31); CHLORIDE LEVEL 106 MMOL/L (98-107); CHOLESTEROL LEVEL 148 MG/DL (<200); CHOLESTEROL RISK RATIO 3.83 (<5); CREATININE FOR GFR 0.85 MG/DL (0.55-1.30); GLOMERULAR FILTRATION RATE > 90.0 (>60); LDL CHOLESTEROL 86.8 MG/DL (<100); NON-HDL-C 109.4 MG/DL; POTASSIUM SERUM 4.6 MMOL/L (3.5-5.1); SODIUM LEVEL 143 MMOL/L (136-145); TRIGLYCERIDES LEVEL 113 MG/DL (<150)
[2024-12-24 13:04] LABS: TOTAL 25(OH) VITAMIN D 38.1 NG/ML (20.0-100.0)
[2024-12-24 13:05] LABS: VITAMIN B12 LEVEL 350 PG/ML (211-911)
[2024-12-24 13:10] LABS: ESTIMATED AVERAGE GLUCOSE 94.0 MG/DL (60-110)
== END ==
LOC: M RAD 10:33
PROVIDERS: ATTEND Student in an Organized Health Care Education/Training Program
DX: M54.2 Cervicalgia (principal); M54.50 Low back pain, unspecified; G89.29 Other chronic pain; Z68.20 Body mass index [BMI] 20.0-20.9, adult; Z86.39 Personal history of other endocrine, nutritional and metabolic disease; R10.9 Unspecified abdominal pain

== ENCOUNTER → 2025-01-31 | Outpatient (CLI) | payer OTHER | LOC: M RAD 12:27 | PROVIDERS: ATTEND Student in an Organized Health Care Education/Training Program | DX: R10.30 Lower abdominal pain, unspecified (principal) ==

== ENCOUNTER 2025-03-05 15:09 | Emergency (ER) | payer OTHER ==
[~2025-03-05] VITALS: Ht 172.7 cm; Wt 56.6 kg
[2025-03-05 15:13] VITALS: TEMP 99
[2025-03-05] MEDS ORDERED: PHEN1TAB73 (15:18)
[2025-03-05 17:21] VITALS: BP 109/73; O2SAT 100
== END 2025-03-05 17:24 | disposition home or self-care (01) ==
LOC: M ED 15:09
DX: S46.811A Strain of other muscles, fascia and tendons at shoulder and upper arm level, right arm, initial encounter (principal); Y92.019 Unspecified place in single-family (private) house as the place of occurrence of the external cause; Y93.9 Activity, unspecified; Y99.9 Unspecified external cause status; F17.290 Nicotine dependence, other tobacco product, uncomplicated; F12.10 Cannabis abuse, uncomplicated

== ENCOUNTER 2025-03-08 10:57 | Day surgery (SDC) | payer OTHER ==
[~2025-03-08] VITALS: Ht 172.7 cm; Wt 56.1 kg
[~2025-03-08 10:57] MED LIST changes: +PHEN1TAB73
[2025-03-08] MEDS ORDERED: LIDOCAINE 2% 100 MG/5 ML SDV (FOR ANES.) As Ordered ONE (11:39)
[2025-03-08] MEDS ORDERED: GLYCOPYRROLATE INJ 0.2 MG/ML 2 ML VIAL As Ordered ONE (11:39)
[2025-03-08 12:50] VITALS: BP 105/67; O2SAT 99
== END 2025-03-08 12:57 | disposition home or self-care (01) ==
LOC: M OPP 10:57
PROVIDERS: ATTEND Surgery
DX: R19.4 Change in bowel habit (principal); R63.4 Abnormal weight loss; K31.89 Other diseases of stomach and duodenum; R11.2 Nausea with vomiting, unspecified; F17.290 Nicotine dependence, other tobacco product, uncomplicated
CPT/HCPCS: 43239; 45378; 88305; J1596

== ENCOUNTER → 2025-03-17 | Outpatient (CLI) | payer OTHER ==
[2025-03-17 11:48] LABS: CK-MB VALUE MASS < 1.0 NG/ML (<3.6)
[2025-03-17 11:49] LABS: C REACTIVE PROTEIN QUANTITATIV < 0.50 MG/DL (<1.0); CPK CREATINE PHOSPHOKINASE 27 U/L (34-145); PHOSPHORUS LEVEL 3.2 MG/DL (2.5-4.9)
[2025-03-17 11:50] LABS: PTH INTACT 53.1 PG/ML (18.5-88.0)
[2025-03-22 18:22] LABS: ANA PATTERN 2 Mitotic, Centrosome; ANA TITER 2 1:40 titer (NEGATIVE)
== END ==
LOC: M LAB 10:41
PROVIDERS: ATTEND Student in an Organized Health Care Education/Training Program
DX: R29.898 Other symptoms and signs involving the musculoskeletal system (principal)

== ENCOUNTER → 2025-04-02 | Outpatient (CLI) | payer OTHER ==
[2025-04-02 14:52] LABS: BASO # 0.0 10^3/uL (0.0-0.2); BASO % 0.4 % (0.0-1.0); EOS # 0.0 10^3/uL (0.0-0.5); EOS % 0.4 % (0.0-3.0); LYMPH # 2.4 10^3/uL (1.5-5.0); LYMPH % 32.4 % (24.0-44.0); MONO # 0.6 10^3/uL (0.0-0.8); MONO % 7.9 % (2.0-8.0); NEUTROPHILS # 4.4 10^3/uL (1.5-8.5); NEUTROPHILS % 58.8 % (36.0-66.0); PLATELET COUNT, AUTOMATED 250 10^3/uL (150-450)
[2025-04-05 11:57] LABS: SSA SJOGRENS A <1.0 NEG AI (<1.0 NEG); SSB SJOGRENS B <1.0 NEG AI (<1.0 NEG)
[2025-04-08 15:45] LABS: HLA-B27 Negative (Negative)
== END ==
LOC: M LAB 14:29
PROVIDERS: ATTEND Student in an Organized Health Care Education/Training Program
DX: R76.89 Other specified abnormal immunological findings in serum (principal)